=== PATIENT | male | born 1950 | race American Indian/Alaskan Native ===

== ENCOUNTER 2024-11-04 18:45 | Inpatient (IN) | payer MEDICARE, BC, SELFPAY ==
[2024-11-04] VITALS (18 sets, daily range): BP systolic 132–160; BP diastolic 70–86; PULSE 77–88; RESP 11–30; TEMP 36.7; O2SAT 83–98
--- OUTSIDE RECORDS SUMMARY | 2024-11-04 18:47 | XMS_ITS | Clinical Summary ---
Author Organization [facility] Address [address] [place] [address] Care Team Providers Care Bit Grinder Name Role Phone Unavailable Primary Care Provider Unavailabl e Source Comments Patient records contain information from all sites at [facility]. For routine questions regarding patient records, call [phone] during business hours, M-F 8:00 AM - 5:00 PM Central Time. Record requests for emergency care only can be directed to [phone] at any time.[facility] Allergies Active Allergy Reactions Criticality Noted Date Comments Lisinopril Cough 2017 Pneumococcal Vaccine Rash 11/13/2019 Medications * This document contains information received from the source organization and may not represent a complete record from that organization. apixaban (ELIQUIS) 5 mg tablet Take 5 mg by mouth 2 (two) times a day. Active atorvastatin (LIPITOR) 10 mg tablet Take 10 mg by mouth at bedtime. Active clopidogreL (PLAVIX) 75 mg tablet Take 75 mg by mouth daily. Active fluocinonide (LIDEX) 0.05 % cream Apply 1 application topically 2 (two) times a day. Active magnesium oxide (MAG-OX) 400 mg (241.3 mg magnesium) tablet Take by mouth every morning before breakfast. Active metoprolol tartrate (LOPRESSOR) 50 mg tablet Take 50 mg by mouth 2 (two) times a day. Active nitroglycerin (NITROSTAT) 0.[address] 0.4 mg under the tongue as needed for chest pain. Active pantoprazole (PROTONIX) 40 mg EC tablet Take 40 mg by mouth every morning before breakfast. Active sotaloL (BETAPACE) 80 mg tablet Take 80 mg by mouth every 12 (twelve) hours. 1/2 tab 2x/day Active triamcinolone (KENALOG) 0.1 % cream Apply 1 application topically 2 (two) times a day. Active albuterol inhaler Inhale every 4 (four) hours as needed for wheezing. Active Trelegy Ellipta 100-62.5-25 mcg inhaler INHALE 1 PUFF BY MOUTH 1 TIME DAILY Active furosemide (LASIX) 20 mg tablet Take 40 mg (2 tablets) once daily for 3 days then decrease to 20 mg (1 tablet) once daily. 3 Active losartan (COZAAR) 25 mg tablet Take 25 mg by mouth daily. 3 Active fluticasone propionate (FLONASE) 50 mcg/actuation nasal spray Administer 2 sprays into nostril(s). 3 Active carvediloL (COREG) 3.125 mg tablet Take 3.125 mg by mouth. 3 Active aspirin [address] tablet TAKE 1 TABLET BY MOUTH 1 TIME DAILY WITH A MEAL Active traZODone (DESYREL) 100 mg tablet Take 100 mg by mouth at bedtime. Active azelastine (ASTELIN) 137 mcg/spray (0.1 %) nasal spray Administer 2 sprays into nostril(s). 3 Active tamsulosin (Flomax) 0.4 mg 24 hr capsule Take 1 capsule (0.4 mg total) by mouth daily. 90 capsule 3 4 Active sildenafiL (Viagra) 100 mg tablet Take 1 tablet (100 mg total) by mouth daily as needed for erectile dysfunction. 90 tablet 3 4 Active fesoterodine (Toviaz) 4 mg 24 hr tablet Take 1 tablet (4 mg total) by mouth daily. 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 Sleep Obstructive 03/07/2014 Insomnia 02/28/2014 Coronary Stent Status Post 02/28/2014 Mass Parotid 02/07/2014 Hyperlipidemia 05/16/2012 Pain Shoulder Right 08/04/2006 Atherosclerotic Heart Diseas e Of [place] Coronary Artery Without Angina Pectoris 09/13/2005 Overview (04/18/2023): -Acute AL treated with lytics at [place] in 1996 -Acute Inferior wall AL 10/2003 -Stenting of RCA 10/16/2003 -Stenting of LAD, proximal OM1 10/18/2003 -LAD stenting 09/2005 -Angiogram 08/05/2006 Patent LAD, LCX and RCA stents -Adenosine Stress Myoview 08/06/2009 Area of moderate ischemia in the inferior wall EF 55% Encounters Date Type Department Care Team Description 10/25/2024 Clinical Communication Department of Ophthalmology in [place], [place] [address] [place] [address] Orlin Tucker M.D. 10/15/2024 Orders Only Department of Ophthalmology in [place], [place] [address] [place] [address] [facility] 09/03/2024 Orders Only Department of Urology in [place], [place] [address] [place] [address] Yudelka Lindsey APRN, C.N.P. 08/31/2024 Clinical Communication Department of Urology in [place], [place] [address] [place] [address] Yudelka Lindsey APRN, C.N.P. from Last 3 Months Immunizations Immunization Administration Dates Next Due Pneumococcal, Unspecified 07/04/2010 influenza vaccine quad (FLUZ ONE/FLUARIX) (6 months and older)(PF) 04/12/2014 Family History Medical History Relation Name Comments Cataracts Sister Relation Name Status Comments Sister Social History Tobacco Use Types Packs/Day Years Used Date Smoking Tobacco: Former Cigarettes Q uit: 11/01/2022 Passive Smoke Exposure: Never Smokeless Tobacco: Never Tobacco Cessation:Counseling Given: Not Answered Social Connection and Isolat ion Panel [NHANES] Answer Date Recorded In a typical week, how many times do you talk on the phone with family, friends, or neighbors? More than three times a week 11/12/2019 How often do you get togethe r with friends or relatives? More than three times a week 11/12/2019 How often do you attend chur ch or voodoo services? 1 to 4 times per year 11/12/2019 Do you belong to any clubs o r organizations such as yazdanism groups, unions, fraternal or athletic groups, or school groups? No 11/12/2019 How often do you attend meet ings of the clubs or organizations you belong to? Never 11/12/2019 Are you , , di vorced, , never , or living with a partner? 11/12/2019 AUDIT-C Answer Date Recorded Q1: How often do you have a drink containing alc ohol? 2-4 times a month 11/12/2019 Q2: How many drinks containi ng alcohol do you have on a typical day when you are drinking? 1 or 2 11/12/2019 Q3: How often do you have si x or more drinks on one occasion? Never 11/12/2019 Overall Financial Resource Strain (CARDIA) Answe r Date Recorded How hard is it for you to pa y for the very basics like food, housing, medical care, and heating? Not hard at all 05/23/2023 [facility] [place] [facility] Occupat ional Health - Occupational Stress Questionnaire Answer Date Recorded Do you feel stress - tense, restless, nervous, or anxious, or unable to sleep at night because your mind is troubled all the time - these days? Not at all 11/12/2019 Exercise Vital Sign Answer Date Recorde d On average, how many days pe r week do you engage in moderate to strenuous exercise (like a brisk walk)? 0 days Minutes of Exercise per Session Not on file 05/23/2023 Hunger Vital Sign Answer Date Recorded Within the past 12 months, y ou worried that your food would run out before you got the money to buy more. Never true 05/23/20 Within the past 12 months, t he food you bought just didn't last and you didn't have money to get more. Never true 05/23/2023 PRAPARE - Transportation Answer Date Re corded In the past 12 months, has l ack of transportation kept you from medical appointments or from getting medications? No 05/05 In the past 12 months, has l ack of transportation kept you from meetings, work, or from getting things needed for daily living? No 05/23/2023 Nutrition Answer Date Recorded On average, how many serving s of fruits and vegetables do you eat per day (serving size is equal to 1 cup or approximately the size of a tennis ball)? 0-2 05/23/2023 Dental Answer Date Recorded Dental: Regular Dentist Yes 05/23/20 Employment Answer Date Recorded Employment status Retired 05/23/2023 Housing Stability Answer Date Recorded What is your living situation today? I have a [facility] place to live 05/23/2023 Education Answer Date Recorded What is the highest level of school you have completed or the highest degree you have received? Some college, no degree 11/12/2019 Sex and Gender Information Value Date Recorded Sex Assigned at Male 05/23/2023 8:42 AM [employer] Legal Sex Male 5:52 PM [employer] Gender Identity Male 05/23/2023 8:42 AM [employer] Sexual Orientation Straight 05/23/2023 8: 42 AM [employer] Last Filed Vital Signs Vital Sign Reading Time Taken Comments Blood Pressure 112/62 01/13/2017 9:47 AM CDT Pulse 76 01/13/2017 9:47 AM CDT Temperature - - Respiratory Rate 18 01/13/2017 9:47 AM CDT Oxygen Saturation - - Inhaled Oxygen Concentration - - Weight 113 kg (249 lb 5.4 oz) 11/20/2020 8:09 AM CDT Height 169 cm (5' 6.54) 11/20/2020 8:09 AM CDT Body Mass Index 39.6 11/20/2020 8:09 AM CDT Plan of Treatment Health Maintenance Due Date Last Done Comments CT Colonography 1950 Cologuard 1950 FIT 1950 Hepatitis C Screening 1950 Office Visit for Blood Pressure Check / Re-check 1950 Zoster Vaccines (1 of 2) 2001 RSV vaccine - (32-36 weeks) or 60+ years (1 - Risk 60-74 years 1-dose series) 2011 DTaP,Tdap,and Td Vaccines (2 - Td or Tdap) 01/27/2021 01/27/2011 COVID-19 Vaccine (4 - season) 2024 06/06/2023, 04/15/2022, 05/15/2021 Influenza Vaccine (#1) 2024 , 04/15/2022, 03/19/2019, Additional history exists Depression Screening (Annual PHQ-2) 07/04/2024 Fall Risk Screen (Annual) 07/04/2024 Creatinine Level (Kidney Function Test) 03/20/2025 03/20/2024, 12/20/2023, 06/22/2023, Additional history exists Potassium Level 03/20/2025 03/20/2024, 12/02, 03/28/2023, Additional history exists Sodium Level 03/20/2025 03/20/2024, 12/02, 03/28/2023, Additional history exists Fasting Glucose for Diabetes Screening 03/20/2027 03/20/2024, 12/20/2023, 03/28/2023, Additional history exists Lipid (Cholesterol) Screening 12/19/2028 12/20/2023, 11/09/2022, 12/03/2020, Additional history exists Colonoscopy 03/11/2030 03/11/2020, 04/08/2006 Colorectal Cancer Screening 03/11/2030 Abdominal Aortic Aneurysm (AAA) Screen Completed 12/12/2017, 12/12/2017, 03/31/2014, Additional history exists Pneumococcal vaccine (50+ years) Completed 05/08/2018, 04/21/2016, 07/04/2010, Additional history exists IPV Vaccines Aged Out No longer eligi ble based on patient's age to complete this topic Medical Devices Implanted Type Area Application Integrator Device Identifier Shelf Expiration Date Model / Serial / Lot Jose Stent 4.0 X 20 - Acuna [id number] Implanted:Qty: 1 on 03/21/2014 Cardiac Stent [employer] Description:Device Manufactu rer - [employer]. Device Status Text - [id number]. Gelsoft-Str 8mm X 30cm - [id number] Implanted:Qty: 1 on 03/21/2014 Vascular Graft Other/Legacy - See Implant Description [employer] Description:Device Manufactu rer - [employer] Cardi[employer] Sys. Body Location - Other. Not Applicable. Device Status Text - [id number]. Procedures Procedure Name Priority Date/Time Associated Diagnosis Comments ELECTROLYTE (CHEM 4) PANEL, S/P Routine 04/23/2014 4:[address] ABDOMEN PELVIS WITHOUT IV CONTRAST Routine 03/31/2014 9:21 AM CDT from Last 3 Months or Most Recently Relevant to Health Maintenance Results * (ABNORMAL) Electrolyte (Chem 4) Panel (04/23/2014 4:46 AM CDT) Sodium, S 139 135 - 145 MMOL/L [facility] Potassium, S 4.9 3.6 - 5.2 MMOL/L [facility] eGFR-Black/Afri can [place] >60 >60 ML/MIN/BSA [facility] BUN (Blood Urea Nitrogen), S 13 8 - 24 MG/DL [facility] Chloride, S 102 98 - 107 MMOL/L [facility] HX Bicarbonate, P/S 30(H) 22 - 29 MMOL/L [facility] Creatinine 1.2 0.8 - 1.3 MG/DL [facility] eGFR Non-Black/Afric an [place] >60 >60 ML/MIN/BSA [facility] Anion Gap 7 7 - 15 [facility] Glucose, S 93 70 - 140 MG/DL [facility] 04/23/2014 4:46 AM CDT 04/23/2014 4:46 AM CDT us Angela Kramer APRN C.NKeiryPKeiry, M.S.N., RDivina SQUIRES BLOOD ADD-ON Final Result Performing Organization Address City/State/[facility] Co de Phone Number [facility] [address] [place] [address], [facility] * CT Abdomen Pelvis without IV Contrast (03/31/2014 9:21 AM CDT) Anatomical Region Laterality Modality Abdomen, Pelvis N/A Computed Tomogra phy 03/31/2014 9:21 AM CDT Impressions 03/31/2014 11:55 AM CDT 1. Decreased hemoperitoneum. 2. Tubular opacity in the right common femoral and external iliac veins may represent a retained catheter fragment. 3. Remainder unchanged since 03/22/2014. FINDINGS: Decreased hemoperitoneum. The bilateral femoral central venous catheters/ECMO have been removed. Persistent linear object in the right external iliac and femoral veins, concerning for a retained catheter fragment (present previously). Bilateral groin drains. Small amount of residual blood products in the right groin. Cholecystectomy. Decreased perinephric stranding. Urinary catheter. NG tube. Normal caliber small bowel and colon. No definite lymphadenopathy in the abdomen or pelvis. Small residual bilateral pleural effusions with associated compressive atelectasis in the lung bases. Right anterior 5th and bilateral anterior 6th rib fractures. Vague isolated sclerosis in the posterior aspect of the left ilium, seen on series 2 images 66-71, of uncertain significance. Coronary stents. Electronically signed by: Jayden Jose MD [phone] 31-Mar-2014 11:55 Atif Balderrama M.D. [phone] 31-Mar-2014 11:55 Narrative 03/31/2014 11:55 AM CDT 31-Mar-2014 09:21:00 Exam: CT ABDOMEN wo & PELVIS wo Indications: s/p arrest/cpr/va ecmo -eval for any thrombotic/bleed event -s/p parotidectomy; neck hematoma eval for abscess; right neck incision ORIGINAL REPORT - 31-Mar-2014 11:55:00 EXAM: CT scan of the Abdomen and Pelvis without IV contrast COMPARISON: CT chest abdomen pelvis without IV contrast dated 03/22/2014. Procedure Note Erick Balderrama M.D. - 09/30/2017 31-Mar-2014 09:21:00 Exam: CT ABDOMEN wo & PELVIS wo Indications: s/p arrest/cpr/va ecmo -eval for any thrombotic/bleed event-s/p parotidectomy; neck hematoma eval for abscess; right neck incision ORIGINAL REPORT - 31-Mar-2014 11:55:00 EXAM: CT scan of the Abdomen and Pelvis without IV contrast COMPARISON: CT chest abdomen pelvis without IV contrast dated 03/22/2014. IMPRESSION: 1. Decreased hemoperitoneum. 2. Tubular opacity in the right common femoral and external iliac veinsmay represent a retained catheter fragment. 3. Remainder unchanged since 03/22/2014. FINDINGS: Decreased hemoperitoneum. The bilateral femoral central venouscatheters/ECMO have been removed. Persistent linear object in the rightexternal iliac and femoral veins, concerning for a retained catheterfragment (present previously). Bilateral groin drains. Small amount ofresidual blood products in the right groin. Cholecystectomy. Decreased perinephric stranding. Urinary catheter. NGtube. Normal caliber small bowel and colon. No definite lymphadenopathy inthe abdomen or pelvis. Small residual bilateral pleural effusions withassociated compressive atelectasis in the lung bases. Right anterior 5thand bilateral anterior 6th rib fractures. Vague isolated sclerosis in theposterior aspect of the left ilium, seen on series 2 images 66-71, ofuncertain significance. Coronary stents. Electronically signed by: Jayden Jose MD [phone] 31-Mar-2014 11:55 Atif Balderrama M.D. [id number] 11:55 Edu Vizcarra M.D. IMRaffy CT PROCEDURES Final Res ult from Last 3 Months or Most Recently Relevant to Health Maintenance Insurance [facility] MEDICARE
--- OUTSIDE RECORDS SUMMARY | 2024-11-04 18:47 | XMS_ITS | Clinical Summary ---
Author Organization [employer] [facility] [employer] [facility] Address [address] [place] [address] Care Team Providers Care Monorail Helper Name Role Phone Licha Henderson MD Primary Care Provider [phone] Lambert Cullen MD Unavailable [phone] Allergies Active Allergy Reactions Criticality Noted Date Comments Lisinopril Cough 2017 Pneumococcal 23-Maame Ps Vaccine Edema,Erythema 1 07/10/2017 Medications nitroglycerin (NITROSTAT) 0.4 mg sublingual tabletIndications:Chest pain in adult Place 1 tablet under the tongue every 5 minutes if needed for Chest Pain. 25 tablet 5 07/20/19 20 Active fluocinonide 0.05 TOPICAL (LIDEX) 0.05 % external solutionIndications:Jagdeep matitis of ear canal, left Apply topically to affected area(s) 2 times daily. 60 mL 1 07/21/19 21 Active oxybutynin XL (DITROPAN XL) 5 mg CR tablet Take 5 mg by mouth once daily. 05/23/20 23 Active aspirin (ECOTRIN) 81 mg enteric coated tabletIndications:Parox ysmal atrial fibrillation (HC) Take 1 Tablet (81 mg) by mouth once daily with a meal. 90 Tablet 3 06/17/20 23 Active fluticasone (50 mcg per actuation) nasal solution (FLONASE)Indications:Po stnasal drip Inhale 2 Sprays to both nostrils once daily. 48 g 3 11/12/19 24 Active triamcinolone (ARISTOCORT; KENALOG) 0.1 % creamIndications:Dermat itis Apply topically to affected area(s) two times daily. 80 g 5 11/30/19 24 Active tamsulosin (FLOMAX) 0.4 mg capsuleIndications:Shyam gn prostatic hyperplasia with urinary frequency Take 1 Capsule (0.4 mg) by mouth once daily after a meal. 90 Capsule 2 03/01/20 24 Active atorvastatin (LIPITOR) 10 mg tabletIndications:Pure hypercholesterolemia Take 1 Tablet (10 mg) by mouth at bedtime. 90 Tablet 2 03/01/20 24 Active doxycycline hyclate 100 mg capsule TAKE 1 CAPSULE BY MOUTH TWICE DAILY BEFORE MORNING AND EVENING MEALS FOR 21 DAYS 05/14/20 24 Active apixaban (Eliquis) 5 mg tabletIndications:Atria l fibrillation by electrocardiogram (HC) Take 1 Tablet (5 mg) by mouth two times daily. 180 Tablet 1 05/29/20 24 Active carvediloL (COREG) 6.25 mg tabletIndications:Hyper tension Take 1 Tablet (6.25 mg) by mouth two times daily with meals. 180 Tablet 3 05/29/20 24 Active furosemide (LASIX) 20 mg tabletIndications:Parox ysmal atrial fibrillation (HC),CASAREZ (dyspnea on exertion) Take 1 Tablet (20 mg) by mouth once daily. 90 Tablet 3 05/29/20 24 Active losartan (COZAAR) 25 mg tabletIndications:Parox ysmal atrial fibrillation (HC) Take 1 Tablet (25 mg) by mouth once daily. 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 90 Tablet 2 09/13/19 25 Active metoprolol tartrate (LOPRESSOR) 50 mg tabletIndications:Parox ysmal atrial fibrillation (HC),Chest pain, unspecified type,Coronary artery disease involving nulato coronary artery of nulato heart with unstable angina pectoris (HC),PVC (premature ventricular contraction) Take 1 Tablet (50 mg) by mouth two times daily. 180 Tablet 2 09/13/19 25 Active metoprolol tartrate 50 mg tabletIndications:Parox ysmal atrial fibrillation (HC),Chest pain, unspecified type,Coronary artery disease involving nulato coronary artery of nulato heart with unstable angina pectoris (HC),PVC (premature ventricular contraction) TAKE ONE (1) TABLET BY MOUTH TWICE DAILY 180 Tablet 09/19/19 25 Active sotaloL 80 mg tabletIndications:Persi stent atrial fibrillation (HC) TAKE 1/2 TABLET (40 MG) BY MOUTH EVERY 12 HOURS 90 Tablet 09/19/19 25 Active Active Problems Patient Care Coordination No te Formatting of this note migh t be different from the original. HF/Structural/Prevention Research Eligibility Review Date: 08/27/19 Upcoming Visit Location: [facility] Age: 69 y.o. 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 08/25/2019 Chronic obstructive pulmonary disease 05/08/2018 Paroxysmal atrial fibrillation 08/26/2017 Overview (08/26/2017): S/P atrial fibrillation ablation 08/26/2017 History of cardiac arrest 03/29/2017 KRISTI (obstructive sleep apnea) 03/29/2017 History of Mars's esophagus 03/29/2017 Benign prostatic hyperplasia with lower urinary tract symptoms 03/29/2017 Right inguinal pain 03/29/2017 Typical atrial flutter 06/08/2016 Gastroesophageal reflux disease without esophagi tis 06/18/2015 Lymphedema 08/02/2014 Occlusion of coronary artery, acute 03/21/2014 Overview (04/25/2014): right coronary artery, s/p thrombectomy and bare metal stent placement at [facility] Personal history of colonic polyps 06/14/2012 Hyperlipidemia 05/16/2012 BPH (benign prostatic hypertrophy) 11/09/2009 Erectile Dysfunction 11/01/2006 CHRONIC BILATERAL SHOULDER PAIN 08/04/2006 ASCVD (arteriosclerotic cardiovascular disease) 09/13/2005 Overview (12/26/2013): -Acute CT treated with lytics at [facility] in 1996 -Acute Inferior wall CT 10/2003 -Stenting of RCA 10/16/2003 -Stenting of LAD, proximal OM1 10/18/2003 -LAD stenting 09/2005 -Angiogram 08/05/2006 Patent LAD, LCX and RCA stents -Adenosine Stress Myoview 08/06/2009 Area of moderate ischemia in the inferior wall EF 55% Hypertension Resolved Problems Problem Noted Date Diagnosed Date Resolved Date Class 3 severe obesity with serious comorbidity and body mass index (BMI) of 40.0 to 44.9 in adult 06/07/2023 11/02/2023 After-cataract of left eye w ith vision obscured 11/25/2020 04/14/2021 Combined forms of age-relate d cataract of left eye 12/18/2019 04/14/2021 Other cardiomyopathies 12/30/201811/15 Coronary artery disease invo lving nulato coronary artery of nulato heart 10/31/2018 11/10/19 Chest pain 03/29/2017 05/08/2018 GERD (gastroesophageal reflux disease) 03/29/2017 11/09/2022 Unstable angina 03/29/2017 05/08/2018 LV dysfunction 03/29/2017 05/08/2018 Anticoagulation monitoring, INR range 2-3 06/04/2016 07/02/2016 Dyspnea 05/28/2016 12/29/2018 CASAREZ (dyspnea on exertion) 05/28/2016 Lymphedema of left leg 08/02/201408/02 Non-ST elevation myocardial infarction (NSTEMI), initial care episode 01/29/2010 4 Insomnia 11/09/2009 03/29/2017 Dizziness and giddiness 08/08/200912/02 Chest discomfort 08/07/2009 12/26/2013 Adjustment disorder with depressed mood 12/24/2008 08/02/2014 Pure hypercholesterolemia 09/13/2005 Overview (08/07/2009): -On Zetia -Intolerant to Lipitor and Zocor, elevated LFTs Unspecified essential hypertension 09/13/2005 05/16/2012 Overview (08/07/2009): -On Altace -Intolerant to BB Tobacco use disorder 09/13/2005 007 Overview (09/13/2005): 1/2 ppd Cardiac arrest 12/29/2018 Overview (04/25/2014): in hospital, V-fib arrest requiring VA ECMO support and therapeutic hyppthermia Acute internal jugular vein thrombosis 08/29/2018 Overview (04/25/2014): left Polyp of colon 11/09/2022 Encounters Date Type Department Care Team Description 10/24/[address] [phone] Licha Henderson MD ACC Order Request (LYMPHEDEMA) 10/10/[address] [phone] Licha Henderson MD Message (Blood thinner inquiry) 09/13/2024 Refill [facility] [address] [place] [address] Jayden Monroe MD Refill Request 09/12/2024 Telephone [facility] [address] [place] [address] Jayden Monroe MD Refill Request (Metoprolol & Carvedilol) 09/12/2024 Refill [facility] [address] [place] [address] Licha Henderson MD Refill Request (Metoprolol Tartrate, Sotalol) 09/11/2024 Refill [facility] [address] [place] [address] Jayden Monroe MD Refill Request (Sotalol & metoprolol tartrate) 09/11/2024 Refill [facility] [address] [place] [address] Licha Henderson MD Refill Request (Trelegy Ellipta, Trazodone) 08/28/2024 Telephone [facility] [address] [place] [address] Dede Melendrez MD Cardiology Appointment from Last 3 Months Immunizations Immunization Administration Dates Next Due COVID-19 VACCINE SPIKEVAX (M ODERNA 50MCG/0.5ML) 12YO+ PFS 06/06/2023 Influenza, High-dose Inactivated 04/21/2016 Influenza, High-dose Quadriv alent Inactivated 04/15/2022 Influenza, IIV3 (Age 6-35 mos) 04/21/2011 Influenza, IIV3 (Age >=3 years) 05/16/2012,04/21,05/13/2008 Influenza, IIV4 05/14/2014,04/12/2014 Influenza, Inactivated AIIV4 (Age 65+ Years) Preserv Free 06/06/2023 Influenza, Inactivated IIV3 (Age 65+ Years) Preserv Free 03/19/2019,05/08/2018,03/31/2017 Pneumococcal Poly,23-Valent (Pneumovax) 05/08/20 18,02/08/2006 Pneumococcal conj 13-Valent (Prevnar 13) 016 Pneumococcal, Unspecified 07/04/2010 Td (Age >=7 Years) 01/08/1997 Tdap 01/27/2011 Family History Medical History Relation Name Comments Hypertension Brother 1 Stroke Brother 2 Diabetes Brother 3 Other Brother 4 age 7, all ergic reaction? Psychiatric illness Daughter Unique Grider on Heart Disease Father CT age 71 Heart attack Father Hypertension Father Heart attack Mother Other Mother age 69- ki dney and liver failure. Possible alcoholism Cancer-breast Sister 1 Eli Cancer-breast Sister 2 Stephanie Relation Name Status Comments Brother 1 Brother 2 Brother 3 Brother 4 Daughter Unique Father Maternal Uncle colon cancer Other Mother Sister 1 Eli Alive Sister 2 Stephanie Alive Sister 3 Vivian Alive Sister 4 Patricia Alive Sister 5 Daphne Alive Sister 6 Alive Sister 7 Alive Social History Tobacco Use Types Packs/Day Years Used Date Smoking Tobacco: Former Cigarettes 0.5 3.4 0 07/04/2019 - 11/09/2022 Cigars Smokeless Tobacco: Former Tobacco Cessation:Counseling Given: Not Answered Comments:quit cigarettes 02/06 with 40-45 pack year hx Alcohol Use Standard Drinks/Week Comments Yes 0 (1 standard drink = 0.6 oz pur e alcohol) 3-6 per week PHQ-2 Answer Date Recorded PHQ-2 TOTAL SCORE 0 04/02/2024 Social Connections Answer Date Recorded Do you often feel lonely or isolated from those around you? 0 03/28/2024 Financial Resource Strain Answer Date R ecorded Difficulty of Paying Living Expenses 3 03/28/2024 Difficulty of Paying Living Expenses Not on file 03/28/2024 Food Insecurity Answer Date Recorded Do you worry your food will run out before you are able to buy more? 1 03/28/2024 Transportation Needs Answer Date Record ed Does lack of transportation keep you from medica l appointments? 1 03/28/2024 Does lack of transportation keep you from work, meetings or getting things that you need? 1 03/28/2024 Housing Stability Answer Date Recorded What is your housing situation today? 1 03/28/2024 Interpersonal Safety Answer Date Record ed Are you being hit, kicked, p ushed or yelled at (see row info)? No 03/20/2024 Interpersonal Safety Abuse 12 - 18 Not on file 03/20/2024 Interpersonal Safety Ambulatory Vulnerability No t on file 03/20/2024 Utilities Answer Date Recorded Do you have trouble paying f or utilities (for example, heat, electricity, water, phone)? 1 03/28/2024 Sex and Gender Information Value Date Recorded Sex Assigned at Not on file Legal Sex Male 5:23 AM BOILER WELDER Gender Identity Not on file Sexual Orientation Not on file Occupation Industry Job Start Date Job End Date Not on file Not on file Not on file Not on file Obstetrics History Last Filed Vital Signs Vital Sign Reading Time Taken Comments Blood Pressure 148/88 05/29/2024 11:18 AM BOILER WELDER Pulse 68 05/29/2024 11:18 AM BOILER WELDER Temperature 36.6 C (97.9 F) 03/20/2024 8:46 AM CDT Respiratory Rate 16 03/20/2024 8:46 AM CDT Oxygen Saturation 96% 05/29/2024 11:18 AM BOILER WELDER Inhaled Oxygen Concentration - - Weight 120.7 kg (266 lb) 05/29/2024 11:18 AM BOILER WELDER Height 170.2 cm (5' 7) 05/29/2024 11:18 AM BOILER WELDER Body Mass Index 41.66 05/29/2024 11:18 AM BOILER WELDER Plan of Treatment Upcoming Encounters Date Type Department Care Team (Late st Contact Info) Description 11/06/2024 2:15 PM CDT Appointment [address] [address] Yasmin Guerra, OT [address] [place] [address] 11/07/2024 3:00 PM CDT Office Visit [address] [phone] Licha Henderson MD [address] [place] [address] 11/09/2024 12:15 PM CDT Appointment [address] [address] Yasmin Guerra, OT [address] [address] 11/13/2024 2:30 PM CDT Appointment [address] [place] [address] Yasmin Guerra, OT [address] [address] 11/15/2024 3:15 PM CDT Appointment [address] [place] [address] Yasmin Guerra, OT [address] [address] 11/20/2024 3:15 PM CDT Appointment [address] [address] Yasmin Guerra, OT [address] [address] 11/22/2024 3:15 PM CDT Appointment [address] [address] Yasmin Guerra, OT [address] [facility] [place] [address] 11/27/2024 2:30 PM CDT Appointment [address] [address] Yasmin Guerra, OT [address] [address] 11/29/2024 2:30 PM CDT Appointment [address] [address] Yasmin Guerra, OT [address], [place] [address] 12/11/2024 3:15 PM CDT Appointment [address] [address] Yasmin Guerra, OT [address] [place] [address] 12/14/2024 3:15 PM CDT Appointment [address] [address] Yasmin Guerra, OT [address] [place] [address] 12/18/2024 10:30 AM CDT [facility] [address] [place] [address] Orlin Jimenez MD [address] [facility] [address] [place] [address] 12/19/2024 3:15 PM CDT Appointment [address] [address] Yasmin Guerra, OT [address], [place] [address] 12/21/2024 3:15 PM CDT Appointment [address] [address] Yasmin Guerra, OT [address] [place] [address] Health Maintenance Due Date Last Done Comments Zoster (shingles) series for age 50+ (1 of 2) 2001 RSV vaccine for adults or (1 - Risk 60-74 years 1-dose series) 2011 Tetanus booster 01/27/2021 01/27/2011, 01/08/1997 Colonoscopy through age 75 03/11/202303/11, 06/06/2012, 06/06/2012, Additional history exists Medicare Wellness for age 65+ 11/10/2023, 03/03/2020, 05/08/2018 COVID-19 vaccine series ( season) 2024 06/06/2023, 04/15/2022, 05/15/2021 Influenza Vaccine (Season Ended) 2025 06/06/2023, 03/19/2019, 05/08/2018, Additional history exists Depression screening for age 12+ 04/02/2025 04/02/2024, 11/09/2022, 04/16/2021, Additional history exists BMI (ht and wt on same day) for age 18+ 05/29/2025 05/29/2024, 12/23/2023, 06/06/2023, Additional history exists Lipids for age 45-75 12/19/2028 12/20/2023, 11/09/2022, 12/03/2020, Additional history exists Tdap Completed 01/27/2011 AAA screening age 65-74 Completed 12/13/19 18, 11/11/2014, 10/31/2014 Pneumococcal series for age 50+ Completed 05/08/2018, 04/21/2016, 07/04/2010, Additional history exists Hepatitis C screening for ag e 18-79 Completed 08/24/2019 Medical Devices Implanted Type Area Operator Device Identifier Shelf Expiration Date Model / Serial / Lot Iol Mower +21 [employer] [id number] - [id number] Implanted:Qty: 1 on 12/19/2019 by Oren Cameron Jr., MD at [facility] Left: Eye [employer] 03/09/2023 [id number] 21.0# / [id number] / Procedures Procedure Name Priority Date/Time Associated Diagnosis Comments LIPID PANEL Routine 12/20/2023 7:34 AM CDT Dyslipidemia COLONOSCOPY 03/11/2020 8:04 AM CDT ANTI HCV Routine 08/24/2019 11:30 AM BOILER WELDER Need for hepatitis C screening test CT ABDOMEN PELVIS W Routine 12/12/2017 2 :04 PM CDT Abdominal pain, RUQ (right upper quadrant) Abdominal pain, LUQ (left upper quadrant) from Last 3 Months or Most Recently Relevant to Health Maintenance Results * (ABNORMAL) LIPID PANEL (12/20/2023 7:34 AM CDT) Pathologist [facility] CHOLESTEROL,TOTAL 193 100 - 199 mg/dL 12/20/2023 8:19 AM [facility] Comment: Cholesterol, Total Reference Ranges Desirable <200 mg/dL Borderline 200-239 mg/dL High >=240 mg/dL TRIGLYCERIDES 191(H) <150 mg/dL 12/20/2023 8:19 AM [facility] HDL CHOLESTEROL 50 >40 mg/dL 8:19 AM [facility] NON-HDL CHOLESTEROL 143 <145 mg/dl 12/20/2023 8:19 AM [facility] CHOL/HDL RATIO 3.86 <4.50 12/20/2023 8:19 AM [facility] LDL CHOLESTEROL 105 <=130 mg/dL 12/20/2023 8:19 AM [facility] VLDL CHOLESTEROL 38(H) <=30 mg/dL 12/20/2023 8:19 AM [facility] PROVIDER ORDERED STATUS RANDOM 12/20/2023 8:19 AM [facility] Blood BLOOD SPECIMEN / Unknown Venipuncture / Unknown 12/20/2023 7:34 AM CDT 12/20/2023 7:36 AM CDT [facility] Titus Melendrez MD CHEMISTRY Final Result [facility] [address] [place] [phone] * COLONOSCOPY (03/11/2020 8:04 AM CDT) 03/11/2020 8:04 AM CDT Narrative Transcriptions Fiona Shelton, - 04/06/2020 9:59 AM CDT Patient Name: Dorian Spencer Procedure Date: 03/11/2020 Gender: Male Date of : 1950 Admit Type: Ambulatory Procedure: Colonoscopy Proceduralist: Fiona Shelton MD [facility] Indications/Pre-Op Diagnosis: High risk colon cancer surveillance:Personal history of colonic polyps, Last colonoscopy5 years ago Medications: Propofol per Anesthesia Procedure Description: The patient had risks, benefits and alternatives explained to andgave informed consent. The patient had a stable cardiopulmonary status and judged an adequate candidate for conscious sedation. The colonoscope was passed through the anus and advanced to thececum, identified by appendiceal orifice and ileocecal valve. Thecolonoscopy was performed without difficulty. The patient tolerated the procedure well. The quality of the bowel preparation was good. The ileocecal valve, appendiceal orifice, and rectum were photographed. Complications: No immediate complications. Estimated Blood Loss & Specimen: Estimated blood loss: none. Specimen collected - Yes and sent to Laboratory Findings: A 5 mm polyp was found in the ascending colon. The polyp was sessile. The polyp was removed with a hot snare. Resection and retrieval were complete. Verification of patient identification for the specimen was done. Estimated blood loss was minimal. A 3 mm polyp was found in the transverse colon. The polyp wassessile. The polyp was removed with a hot snare. Resection and retrieval were complete. Verification of patient identification for the specimen was done. Estimated blood loss was minimal. A 4 mm polyp was found in the sigmoid colon. The polyp was sessile.The polyp was removed with a hot snare. Resection and retrieval were complete. Verification of patient identification for the specimen was done. Estimated blood loss was minimal. Three sessile polyps were found in the rectum. The polyps were 3 to 4mm in size. These polyps were removed with a hot snare. Resection and retrieval were complete. Verification of patient identification forthe specimen was done. Estimated blood loss was minimal. Internal hemorrhoids were found during retroflexion. The hemorrhoids were Grade II (internal hemorrhoids that prolapse but reduce spontaneously). Impressions/Post-Op Diagnosis: - One 5 mm polyp in the ascending colon, removed with a hot snare. Resected and retrieved. - One 3 mm polyp in the transverse colon, removed with a hot snare. Resected and retrieved. - One 4 mm polyp in the sigmoid colon, removed with a hot snare. Resected and retrieved. - Three 3 to 4 mm polyps in the rectum, removed with a hot snare. Resected and retrieved. - Internal hemorrhoids. Recommendation: - Discharge patient to home. - Patient has a contact number available for emergencies. The signsand symptoms of potential delayed complications were discussed with the patient. Return to normal activities tomorrow. Written discharge instructions were provided to the patient. - Resume previous diet. - Continue present medications. - Await pathology results. - Repeat colonoscopy in 3 - 5 years for surveillance. Fiona Shelton MD 04/06/2020 9:59:36 AM This report has been signed electronically. Note Initiated On: 03/11/2020 8:04 AM us Fiona Shelton DO PROCEDURE ORD Fi nal Result * ANTI HCV (08/24/2019 11:30 AM BOILER WELDER) HEPATITIS C ANTIBODY Non-React melisa Non-React melisa 08/24/2019 10:06 PM BOILER WELDER [facility] Comment:Antibodies to HCV no t detected; does not exclude the possibility of exposure to HCV. Blood BLOOD SPECIMEN / Unknown Venipuncture / Unknown 08/24/2019 11:30 AM BOILER WELDER 08/24/2019 11:32 AM BOILER WELDER us Licha Henderson MD SEND OUTS Final Res ult [facility] [address] [place] [address], [place] * CT ABDOMEN PELVIS W (12/12/2017 2:04 PM CDT) Anatomical Region Laterality Modality Abdomen, Pelvis, AORTA, LIVER, SPLEEN Computed Tomography 12/12/2017 3:06 PM CDT Narrative 12/12/2017 3:06 PM CDT INDICATION: Bilateral upper quadrant abdominal pain TECHNIQUE: CT abdomen and pelvis acquired with 100 cc Isovue-300 IV and oral contrast. COMPARISON: 11/11/2014 FINDINGS: Lower chest: Unremarkable. Liver: Normal in caliber and attenuation. No masses. Gallbladder and bile ducts: Status post cholecystectomy. Pancreas: Unremarkable. Spleen: Normal in caliber. No masses. Adrenal glands: Unremarkable. No masses. Kidneys: Normal in caliber. No masses. GI tract: Normal in caliber and appearance. No sign of mass or inflammation. Normal appendix. Vasculature: Unremarkable. Lymph nodes: No lymphadenopathy. Abdominal wall/Omentum/Peritoneum: Unremarkable. No free air or significant free fluid. Pelvic organs: Suspected TURP defect in the prostate gland. Otherwise unremarkable. Bones: No suspicious bone lesions. IMPRESSION: No acute or specific finding to explain upper abdominal pain. No significant change from the prior exam. Please note that all CT scans at this facility use dose modulation, iterative reconstruction, and/or weight-based dosing when appropriate to reduce radiation dose to as low as reasonably achievable. Dictated by Jacobo Robins MD @ Dec 12 2017 2:53PM Signed by Dr. Jacobo Robins @ Dec 12 2017 3:06PM Procedure Note Jacobo Robins MD - 12/12/2017 INDICATION: Bilateral upper quadrant abdominal pain TECHNIQUE: CT abdomen and pelvis acquired with 100 cc Isovue-300 IV and oralcontrast. COMPARISON: 11/11/2014 FINDINGS: Lower chest: Unremarkable. Liver: Normal in caliber and attenuation. No masses. Gallbladder and bile ducts: Status post cholecystectomy. Pancreas: Unremarkable. Spleen: Normal in caliber. No masses. Adrenal glands: Unremarkable. No masses. Kidneys: Normal in caliber. No masses. GI tract: Normal in caliber and appearance. No sign of mass orinflammation. Normal appendix. Vasculature: Unremarkable. Lymph nodes: No lymphadenopathy. Abdominal wall/Omentum/Peritoneum: Unremarkable. No free air orsignificant free fluid. Pelvic organs: Suspected TURP defect in the prostate gland. Otherwiseunremarkable. Bones: No suspicious bone lesions. IMPRESSION: No acute or specific finding to explain upper abdominal pain. Nosignificant change from the prior exam. Please note that all CT scans at this facility use dose modulation,iterative reconstruction, and/or weight-based dosing when appropriate toreduce radiation dose to as low as reasonably achievable. Dictated by Jacobo Robins MD @ Dec 12 2017 2:53PM Signed by Dr. Jacobo Robins @ Dec 12 2017 3:06PM Licha Henderson MD CT Final Res ult from Last 3 Months or Most Recently Relevant to Health Maintenance Insurance MEDICARE PART B HB ONLY MEDICARE PART A HB ONLY [place] PB ONLY [place] HB ONLY MEDICARE PART B HB ONLY [facility] Advance Directives * Full Code (Latest Code Status on File) Date Activated Date Inactivated Comments 11/24/2022 10:39 AM 11/24/2022 3:41 PM Question Answer Comments Code Status Discussion: Discussed * Full Code Date Activated Date Inactivated Comments 03/11/2020 7:08 AM 03/11/2020 12:31 PM Question Answer Comments Code Status Discussion: Discussed * Full Code Date Activated Date Inactivated Comments 12/19/2019 7:12 AM 12/19/2019 1:43 PM Question Answer Comments Code Status Discussion: Not Discussed * Full Code Date Activated Date Inactivated Comments 11/08/2018 9:39 AM 11/10/2018 1:07 PM * Full Code Date Activated Date Inactivated Comments 12/16/2017 10:43 AM 12/16/2017 5:56 PM Care Teams Monorail Helper Relationship Specialty Start Date End Date Licha Henderson MD [address] [facility] [place] [address] PCP - General Internal Medicine 12/10/13 Lambert Cullen MD [address] [place] [address] Cardiovascular Disease 03/28/17
--- OUTSIDE RECORDS SUMMARY | 2024-11-04 18:47 | XMS_ITS | Encounter Summary ---
Author Organization 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, Provider, Cataract Social History Tobacco Use Types Packs/Day Years Used Date Smoking Tobacco: Former Cigarettes Q uit: 11/01/2022 Passive Smoke Exposure: Never Smokeless Tobacco: Never Social Connection and Isolat ion Panel [NHANES] Answer Date Recorded In a typical week, how many times do you talk on the phone with family, friends, or neighbors? More than three times a week 11/12/2019 How often do you get togethe r with friends or relatives? More than three times a week 11/12/2019 How often do you attend chur ch or methodist services? 1 to 4 times per year 11/12/2019 Do you belong to any clubs o r organizations such as religious groups, unions, fraternal or athletic groups, or [...] and heating? Not hard at all 05/23/2023 [facility] of Occupat ional Health - Occupational Stress [...] your living situation today? I have a [facility] place to live 05/23/2023 Education Answer Date Recorded What is the highest level of school you have completed or the highest degree you have received? Some college, no degree 11/12/2019 Sex and Gender Information Value Date Recorded Sex Assigned at Male 05/23/2023 8:42 AM UTILIZATION REVIEW RN Legal Sex Male 5:52 PM UTILIZATION REVIEW RN Gender Identity Male 05/23/2023 8:42 AM UTILIZATION REVIEW RN Sexual Orientation Straight 05/23/2023 8: 42 AM UTILIZATION REVIEW RN documented as of this encounter Plan of Treatment Not on file documented as of this encounter Visit Diagnoses Diagnosis Cataract documented in this encounter Additional Health Concerns Assessment Noted Time PHQ-9 Depression Total Score: 3 02/14/20 15 8:52 AM CDT documented as of this encounter
--- OUTSIDE RECORDS SUMMARY | 2024-11-04 18:47 | XMS_ITS | Encounter Summary ---
Author Organization [facility] Address [address] [place] [address] Care Team Providers Care Critical Care Technician Name Role Phone Unavailable Primary Care Provider Unavailabl e Encounter Details Date Type Department Care Team (Latest Contact Info) Description 10/25/2024 Clinical Communication Department of Ophthalmology in [place], [place] [address] [place] [address] Orlin Tucker M.D. [address] [place] [address] Social History Tobacco Use Types Packs/Day Years [...] often do you attend chur ch or cheondoism services? 1 to 4 times per year 11/12/2019 Do you belong to any clubs o r organizations such as presybeterian groups, unions, fraternal or athletic groups, or [...] and heating? Not hard at all 05/23/2023 [facility] of Occupat ional Health - Occupational Stress [...] money to buy more. Never true 05/23/20 23 Within the past 12 months, t he [...] your living situation today? [facility] 05/23/2023 Education Answer Date Recorded What is the highest level of school you have completed or the highest degree you have received? Some college, no degree 11/12/2019 Sex and Gender Information Value Date Recorded Sex Assigned at Male 05/23/2023 8:42 AM [employer] Legal Sex Male 5:52 PM [employer] Gender Identity Male 05/23/2023 8:42 AM [employer] Sexual Orientation Straight 05/23/2023 8: 42 AM [employer] documented as of this encounter Plan of Treatment Scheduled Orders Name Type Priority Associated Diagnoses Orde r Schedule Ocular Coherence Biometry (OCB) - OU - Both Eyes Ophthalmology Routine Age Related Nuclear Cataract Right Eye 1 Occurrences starting 10/26/2024 until 01/25/2026 documented as of this encounter Visit Diagnoses Diagnosis 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
--- NOTE | 2024-11-04 19:06 | ED.GENADULT ---
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 Med list available in his records from [facility] through [facility] link includes Albuterol Trouble eg Ellipta Fluticasone nasal spray Apixaban Aspirin 81 mg Carvedilol 6.125 b.i.d. Furosemide 20 mg daily-prescribed for dyspnea on exertion from AFib per medical record Losartan 25 mg Metoprolol tartrate 50 mg Sotalol 40 mg b.i.d. Nitroglycerin sublingually p.r.n. Oxybutynin Sildenafil tamsulosin Trazodone History is obtained mostly from the patient but is supplemented by his family. He has an extensive cardiac history including previous MIs, AFib, previous cardiac arrest requiring ECMO in 1 month long hospitalization. He also has a history of COPD and is a former smoker. He has been sick for the past 10 days or so with a mild cough and has gotten more short of breath for the past 5 days or so. In particular for the past couple of days he has had increasing whole body achiness, weakness, chest tightness, worsening cough. He feels like there is fluid in his lungs but he can not cough it out and his cough is largely nonproductive. He has not had any objectively measured fevers. He has not had any new lower extremity edema and his weight has overall been stable over the past few days. Over the long-term he has been working on losing weight. He has been taking all of his prescription meds, including his Eliquis. He has been fairly resistant to his family's recommendation that he come to the doctor but today he agreed to come. He has been using his albuterol inhaler at home and last used a couple of hours ago. He does feel like it helps a little bit, temporarily. He has been having chest tightness and squeezing in his lungs for the past couple of days. He has been fairly continuous. He is not really having intermittent or exertional chest pain. Related Data Home Medications ?Medication ?Instructions ?Recorded ?Confirmed albuterol sulfate 90 mcg/actuation 2 puff inhalation Q4H PRN dyspnea 11/04/24 11/04/24 aerosol inhaler apixaban 5 mg tablet (Eliquis) 5 mg PO BID 11/04/24 11/04/24 aspirin 81 mg tablet,delayed 81 mg PO DAILY 11/04/24 11/04/24 release atorvastatin 10 mg tablet 10 mg PO QPM 11/04/24 11/04/24 carvedilol 6.25 mg tablet 6.25 mg PO BID 11/04/24 11/04/24 fluticasone fur. 100 mcg-umeclid 1 ea inhalation DAILY 11/04/24 11/04/24 62.5 mcg-vilant 25 mcg inhalat.powder (Trelegy Ellipta) furosemide 20 mg tablet 20 mg PO DAILY 11/04/24 11/04/24 sotalol 80 mg tablet mg PO 11/04/24 tamsulosin 0.4 mg capsule 0.4 mg PO DAILY 11/04/24 11/04/24 trazodone 100 mg tablet 100 mg PO QPM 11/04/24 11/04/24 triamcinolone acetonide 0.1 % applic topical BID 11/04/24 topical cream Allergies Allergy/AdvReac Type Severity Reaction Status Date / Time pneumococcal vaccine AdvReac Intermediate Verified 11/04/24 20:51 PFSH PFSH Social History Smoking Status: Former smoker Do you use any of these nicotine containing products: None How often do you have a drink containing alcohol: 2-4 times a month AUDIT-C Alcohol total score: 2 Non-prescribed substance use: denies use service: No Exam Narrative: Exam Narrative: Constitutional: Appears well-developed and well-nourished. Alert. Polite and conversant. Normal mental status. He was hypoxic on room air so now is on OxyMask. He is requiring 5 L to maintain sats in the mid 90s. Overall respirations are unlabored. He is not tachypneic, retracting, tripoding or showing signs of respiratory distress. He he does have audible wheezing and has wheezing confirmed by lung auscultation. HENT: Head: Atraumatic. Nose: Nose normal. Mouth/Throat: Oral mucosa is clear and moist. no trismus. Pharynx normal. Tonsils symmetric. No tonsillar enlargement, erythema, or exudate. Eyes: Conjunctivae normal. EOM normal. Pupils equal, round, and reactive to light. No scleral icterus. Neck: Normal range of motion. Neck supple. No tracheal deviation present. No JVD Cardiovascular: Normal rate, regular rhythm. No gallop. No friction rub. No murmur heard. Symmetric radial and PT artery pulses Pulmonary/Chest: Effort normal. No stridor. No respiratory distress. He is hypoxic and requires 5 L OxyMask. He does have bilateral Episeal wheezing. Also some questionable rales in both bases, perhaps worse on the right than on the left. Fairly prominent wheezing. Abdominal: Soft. No distension. No mass. No tenderness. No rebound. No guarding. Musculoskeletal: RUE: Normal range of motion. No tenderness. No deformity LUE: Normal range of motion. No tenderness. No deformity RLE: Normal range of motion. Trace edema. No tenderness. No deformity LLE: Normal range of motion. Trace edema. No tenderness. No deformity Neurological: Alert and oriented to person, place, and time. Normal strength. CN II-VII intact. No sensory deficit. GCS eye subscore is 4. GCS verbal subscore is 5. GCS motor subscore is 6. Normal coordination Skin: Skin is warm and dry. No rash noted. No pallor. Normal capillary refill. Psychiatric: Normal mood. Normal affect. Const: Vital Signs, click to edit/add: Vital Signs - 24 hr 11/04/24 18:58 11/04/24 19:04 11/04/24 19:21 Temperature 98.0 F Pulse Rate [Pulse Oximeter] 88 Respiratory Rate 28 H Blood Pressure [Ri ght Upper Arm] 160/86 H Pulse Oximetry 84 L 83 L Oxygen Delivery Me thod Room Air Room Air Oxygen Flow Rate 11/04/24 19:22 11/04/24 20:00 11/04/24 21:16 Temperature Pulse Rate [Pulse Oximeter] 79 Respiratory Rate 20 Blood Pressure [Ri ght Upper Arm] 152/70 H Pulse Oximetry 98 96 92 Oxygen Delivery Me thod OxyMask OxyMask Room Air Oxygen Flow Rate 10 5 11/04/24 21:17 Temperature Pulse Rate [Pulse Oximeter] Respiratory Rate Blood Pressure [Ri ght Upper Arm] Pulse Oximetry 95 Oxygen Delivery Me thod OxyMask Oxygen Flow Rate 5 Course Course ED Course: Recheck-after DuoNeb lung sounds are improved but still slightly wheezy in particular in the apices. Albuterol neb ordered. Still requiring oxygen to keep sats in the 90s. Reevaluation(s) Reevaluation #1: Recheck-after 2nd neb (albuterol) wheezes are resolved. He still has some rales in the bases, and definitely has asymmetric right more than left rales. Still hypoxic on room air and sats drift down to the mid 80s when I take off his oxygen but come right up to the 90s when I put him on 4 L. Chest x-ray is clear by Radiology. Labs show BNP equivocally abnormal at 600. However in the absence of weight gain and peripheral edema, I have lower suspicion for CHF. Although his wheezing is now resolved, he remains hypoxic. I question some other occult lung pathology causing hypoxia. Although he is therapeutic on his Eliquis for stroke prophylaxis for AFib, which lowers his risk for PE, will obtain CT pulmonary angiogram to make sure there is not a breakthrough PE, or some other occult lung parenchymal abnormality such as occult pulmonary edema or occult pneumonia. Recheck-CT is back and radiology read shows a subtle right lower lobe ground-glass opacity. Potentially community-acquired pneumonia. Rocephin and Zithromax ordered. Recheck-continues to do well. Breathing easily on 4 L. conversant. Speaking full sentences. Respiratory rate is normal. Discussed with hospitalist who requests ABG before she can admit. I asked her to come down to evaluate the patient and determine at the bedside if she truly needs that additional lab value. She came to evaluate in still request the ABG. Vital Signs Vital signs: Initial Vital Signs Respiratory Effort Labored, Short of Breath, Abdominal Breathing, SOB at Exertion, Tachypnea, Shallow Breathing, Shortness of Breath at Re 11/04/24 18:57 Respiratory Depth Shallow 11/04/24 18:57 Respiratory Pattern Normal 11/04/24 18:57 Vital Signs Pulse Rate 88 11/04/24 18:58 Respiratory Rate 28 H 11/04/24 18:58 Blood Pressure 160/86 H 11/04/24 18:58 Pulse Oximetry 84 L 11/04/24 18:58 Oxygen Delivery Method Room Air 11/04/24 18:58 Temperature 98.0 F 11/04/24 19:04 Pulse Rate 79 11/04/24 21:16 Respiratory Rate 20 11/04/24 21:16 Blood Pressure 152/70 H 11/04/24 21:16 Pulse Oximetry 95 11/04/24 21:17 Oxygen Delivery Method OxyMask 11/04/24 21:17 Oxygen Flow Rate 5 11/04/24 21:17 Medications Administered Medications: Generic Name Dose Route Start Last Admin Trade Name Freq PRN Reason Stop Dose Admin Ceftriaxone Sodium 1 gm/ 100 mls @ 200 mls/hr 11/04/24 21:24 11/04/24 21:47 Sodium Chloride IVPB 11/04/24 21:25 200 mls/hr ONCE ONE Administration Discontinued Medications Generic Name Dose Route Start Last Admin Trade Name Freq PRN Reason Stop Dose Admin Albuterol 2.5 mg 11/04/24 19:23 11/04/24 19:36 Albuterol Sulfate 2.5 Mg/3 Ml Vial.Neb NEB 11/04/24 19:24 2.5 mg ONCE ONE Administration Albuterol/Ipratropium 1 neb 11/04/24 19:09 11/04/24 19:17 Iprat-Albut 0.5-2.5 Mg/3 Ml Neb IH 11/04/24 19:10 1 neb ONCE ONE Administration Methylprednisolone Sodium Succinate 125 mg 11/04/24 19:23 11/04/24 19:36 Methylprednisolone Sod Succ 62.5 Mg/Ml (125) IVP 11/04/24 19:24 125 mg ONCE ONE Administration Medical Decision Making [facility] Narrative Medical decision making narrative: This patient presents to the ER today for evaluation of c cough, shortness of breath, chest tightness ongoing for the past several days but getting worse today.. Differential was broad. Patient has a history of AFib and is on Eliquis, sotalol, metoprolol. No evidence of palpitations, syncope or other cardiac dysrhythmia. We considered possible ACS, however workup with EKG and troponin is negative. Given continuous chest tightness for the past couple of days, undetectable troponin at this point is reassuring for the absence of acute coronary syndrome. EKG shows no evidence for pericarditis. Clinical presentation not suggestive of myocarditis. EKG does show low voltage QRS. CT scan does not show any sign of pericardial effusion. Chest x-ray shows no evidence for pneumonia, pneumothorax, pulmonary edema, pleural effusion, rib fracture, cardiomegaly. Mediastinum is normal on the x-ray. The patient has no ripping or tearing pain through to the back and has symmetric pulses on exam, no other acute neuro findings so I doubt aortic dissection. Risk of radiation and contrast exposure would outweigh the benefit of CT aortogram. When he presented he was wheezing quite substantially with tight lung sounds. He received DuoNeb, albuterol neb, IV Solu-Medrol and wheezing lung sounds are substantially improved. Despite that he has persistent hypoxia. Although the patient has been taking Eliquis lately, with clear chest x-ray and persistent hypoxia concern is for occult pulmonary pathology. This prompts CT scan. CT is negative for PE but does show evidence for faint ground-glass opacities in the right lung. He is negative for COVID/influenza/RSV by nasal PCR. With history of cough for the past couple of weeks, consider possible pulmonary inflammation from COVID. However , COVID PCR is negative. In any case, he would be outside the window for treatment with Paxlovid. His already recent IV steroids (initially order to treat possible COPD exacerbation). With this lung infiltrate, will start him on antibiotics for community-acquired pneumonia. He will clearly require hospitalization because he remains hypoxic. At this point he is on 4 L OxyMask and mentating normally, breathing easily, and saturating in the mid 90s. He is not showing signs of respiratory fatigue that will require intubation. Discussed with our hospitalist, Dr. Coy. She graciously came to the ER to evaluate this patient and preliminarily accepts him for admission. She has ordered additional testing including a follow-up troponin I and an arterial blood gas. She will contact my partner Dr. Gaxiola after those test results are back to finalize the admission. Therefore I have not placed the formal ?admit to obs ?order in the computer program. Lab Data Labs: Lab Results 11/04/24 11/04/24 11/04/24 Range/Units 19:05 19:24 19:45 WBC 6.06 (4.50-11.00) K/uL RBC 4.78 (4.30-5.90) m/uL Hgb 15.0 (13.5-17.5) gm/dL Hct 42.6 (37.0-53.0) % MCV 89 (80-100) fL MCH 31 (26-34) pg MCHC 35 (32-36) gm/dL RDW Coeff of Janis 11.7 (11.5-15.5) % Plt Count 145 (140-440) K/uL Neut % (Auto) 67.1 (42.0-72.0) % Lymph % (Auto) 18.5 L (20-44) % Culberson % (Auto) 12.4 H (0.0-11.0) % Eos % (Auto) 0.8 (0.0-7.0) % Baso % (Auto) 0.2 (0.0-3.0) % Neut # (Auto) 4.07 (1.7-7.0) K/uL Lymph # (Auto) 1.10 (0.90-2.90) K/uL Culberson # (Auto) 0.80 (0.00-0.90) K/UL Eos # (Auto) 0.05 (0.00-0.50) K/uL Baso # (Auto) 0.01 (0.00-0.30) K/uL Abs Immat Gran (auto) 0.06 (0.00-0.30) K/uL Imm/Tot Granulo (auto) 1.0 % Sodium 135 (135-149) mmol/L Potassium 4.2 (3.6-5.1) mmol/L Chloride 97 (96-114) mmol/L Carbon Dioxide 27 (20-32) mmol/L Anion Gap 11 (7-15) mEq/L BUN 15 (7-30) mg/dL Creatinine 0.9 (0.5-1.5) mg/dL Estimated GFR 90 ml/min Glucose 147 H (60-115) mg/dL Lactate 2.0 H (0.5-1.9) mmol/L Calcium 9.2 (8.4-10.6) mg/dL NT-Pro-B Natriuret Pep 609 pg/mL SARS-CoV-2 (PCR) Negative SARS-CoV-2 (Negative) Influenza Type A (PCR) Negative PCR FLU A (Negative) Influenza Type B (PCR) Negative PCR FLU B (Negative) RSV (PCR) Negative PCR RSV (Negative) POC Troponin I 0.00 L (0.01-0.04) ng/ml Imaging Data Chest x-ray: Attestation: I have reviewed the pertinent imaging results. Radiologist's impression: IMPRESSION: 1. No acute cardiopulmonary disease is seen. CT scan - chest: Attestation: I have reviewed the pertinent imaging results. Radiologist's impression: IMPRESSIONS: 1. No CT evidence of acute pulmonary emboli seen. 2. Ill-defined mild peribronchial ground-glass infiltrates are present within the right lower lobe. Findings may be due to early pneumonia and/or bronchiolitis. 3. Severe atherosclerotic calcifications are noted in the coronary arteries. ECG Data Attestation: I personally reviewed and interpreted this ECG as follows: Interpretation: Normal sinus rhythm Rate: 89 OK: 192 QRS axis: Normal axis. Low QRS voltage ST segment/T wave: No ST segment elevation or depression. Nonspecific T-wave flattening. QTc: 469 Discharge Plan Discharge Clinical Impression: Hypoxic respiratory failure, RLL pneumonia, COPD exacerbation Patient Disposition: Admitted As Observation
[2024-11-04] MEDS: IPRAT-ALBUT 0.5-2.5 MG/3 ML NEB 1 NEB IH (19:17)
--- NOTE | 2024-11-04 19:23 | CRLHL7_ITS ---
For Patients: As a result of the Century Cures Act, medical imaging exams and procedure reports are released immediately into your electronic medical record. You may view this report before your referring provider. If you have questions, please contact your health care provider. INDICATION: Cough, shortness of breath, chest tightness, wheezy apices, rales bases TECHNIQUE: Chest radiograph 2 views COMPARISON: None FINDINGS: The sensitivity and specificity of the exam are moderately limited by the patient`s body habitus. Mediastinum: The mediastinum is normal in appearance. The heart silhouette is normal in size and morphology. Lung: Both lungs are unremarkable in appearance. No sign of pleural effusion seen. No pneumothorax is identified. Bone and Soft tissue: Unremarkable for age. IMPRESSION: 1. No acute cardiopulmonary disease is seen. Dictated by: Constantine Velasquez MD @ 11/04/2024 19:58:52 (Electronically Signed)
[2024-11-04 19:35] LABS: Chloride* 97 mmol/L (96-114); Potassium* 4.2 mmol/L (3.6-5.1); Sodium* 135 mmol/L (135-149)
[2024-11-04] MEDS: METHYLPREDNISOLONE SOD SUCC 62.5 MG/ML (125) 125 MG IVP (19:36)
[2024-11-04] MEDS: ALBUTEROL SULFATE 2.5 MG/3 ML VIAL.NEB NEB ×2 (19:36→23:01)
[2024-11-04 19:38] LABS: Basophils Absolute Auto 0.01 K/uL (0.00-0.30); Basophils Percent Auto 0.2 % (0.0-3.0); Blood Urea Nitrogen* 15 mg/dL (7-30); Creatinine* 0.9 mg/dL (0.5-1.5); Eosinophils Absolute Auto 0.05 K/uL (0.00-0.50); Eosinophils Percent Auto 0.8 % (0.0-7.0); Estimated Glomerular Filt Rate 90 ml/min; Hematocrit 42.6 % (37.0-53.0); Immature Granulocytes Abs Auto 0.06 K/uL (0.00-0.30); Lymphocytes Percent Auto 18.5 % (20-44); Mean Corpuscular HGB Conc 35 gm/dL (32-36); Mean Corpuscular Hemoglobin 31 pg (26-34); Mean Corpuscular Volume 89 fL (80-100); Monocytes Percent Auto 12.4 % (0.0-11.0); Neutrophils Absolute Auto 4.07 K/uL (1.7-7.0); Neutrophils Percent Auto 67.1 % (42.0-72.0); Platelet Count* 145 K/uL (140-440); RDW Coefficient of Variation % 11.7 % (11.5-15.5); Red Blood Count 4.78 m/uL (4.30-5.90); White Blood Count* 6.06 K/uL (4.50-11.00)
[2024-11-04 19:39] LABS: Anion Gap 11 mEq/L (7-15); Calcium* 9.2 mg/dL (8.4-10.6); Carbon Dioxide* 27 mmol/L (20-32); Glucose* 147 mg/dL (60-115)
[2024-11-04 19:40] LABS: Slide Review Reflex No
[2024-11-04 19:48] LABS: NT Pro B Type NatriureticPept* 609 pg/mL
--- OUTSIDE RECORDS SUMMARY | 2024-11-04 19:57 | XMS_ITS | Clinical Summary ---
Author Organization [facility] Address [address] [place] [address] Care Team Providers Care Station Attendant Name Role Phone Licha Henderson MD Primary Care Provider [phone] Lambert Cullen MD Unavailable [phone]- [phone] Allergies Active Allergy Reactions Criticality Noted Date [...] albuterol HFA (PRO-AIR; VENTOLIN; PROVENTIL) 90 mcg/actuation inhalerIndications:Receiving Teller pebbles obstructive pulmonary disease, unspecified COPD type (HC) INHALE 2 PUFFS EVERY 4 HOURS NEEDED FOR SHORTNESS OF BREATH 3 Each 3 06/04/20 24 Active sildenafiL, pulm.hypertension, (REVATIO) 20 mg tabletIndications:Erect ile dysfunction, unspecified erectile dysfunction type Take 2 tabs 30-60 minutes as needed 30 Tablet 10 06/20/20 24 Active Trelegy Ellipta 100-62.5-25 mcg inhalerIndications:Receiving Teller pebbles obstructive pulmonary disease, unspecified COPD type [...] (HC),Chest pain, unspecified type,Coronary artery disease involving [place] coronary artery of [place] heart with unstable angina pectoris (HC),PVC (premature ventricular contraction) Take 1 Tablet (50 mg) by mouth two times daily. 180 Tablet 2 09/13/19 25 Active metoprolol tartrate 50 mg tabletIndications:Parox ysmal atrial fibrillation (HC),Chest pain, unspecified type,Coronary artery disease involving [place] coronary artery of [place] heart with unstable angina pectoris (HC),PVC (premature [...] artery disease of n ative artery of [place] heart with stable angina pectoris 08/25/2019 Chronic [...] thrombectomy and bare metal stent placement at [place] Personal history of colonic polyps 06/14/2012 Hyperlipidemia 05/16/2012 BPH (benign prostatic hypertrophy) 11/09/2009 Erectile Dysfunction 11/01/2006 CHRONIC BILATERAL SHOULDER PAIN 08/04/2006 ASCVD (arteriosclerotic cardiovascular disease) 09/13/2005 Overview (12/26/2013): -Acute CA treated with lytics at [place] in 1996 -Acute Inferior wall CA 10/2003 -Stenting of RCA 10/16/2003 -Stenting of [...] cardiomyopathies 12/30/201811/15 Coronary artery disease invo lving [place] coronary artery of [place] heart 10/31/2018 11/10/19 Chest pain 03/29/2017 05/08/2018 [...] Type Department Care Team Description 10/24/[address] [phone] Licha Henderson MD ACC Order Request (LYMPHEDEMA) 10/10/[address] [phone] Licha Henderson MD Message (Blood thinner inquiry) 09/13/2024 Refill [facility] [address] [place] [address] Jayden Monroe MD Refill Request 09/12/2024 Telephone [facility] [address] [place] [address] Jayden Monroe MD Refill Request (Metoprolol & Carvedilol) 09/12/2024 Refill [facility] [address] [place] [address] Licha Henderson MD Refill Request (Metoprolol Tartrate, Sotalol) 09/11/2024 Refill [facility] [address] [place] [address] Jayden Monroe MD Refill Request (Sotalol & metoprolol tartrate) 09/11/2024 Refill [facility] [address] [place] [address] Licha Henderson MD Refill Request (Trelegy Ellipta, Trazodone) 08/28/2024 Telephone [facility] [address] [place] [address] Dede Melendrez MD Cardiology Appointment from Last [...] Daughter Unique Grider on Heart Disease Father CA age 71 Heart attack Father Hypertension Father [...] on file Legal Sex Male 5:23 AM 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 Gender Identity Not on file Sexual Orientation Not on file Occupation Industry Job Start Date Job End Date Not on file Not on file Not on file Not on file Obstetrics History Last Filed Vital Signs Vital Sign Reading Time Taken Comments Blood Pressure 148/88 05/29/2024 11:18 AM 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 Pulse 68 05/29/2024 11:18 AM 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 Temperature 36.6 C (97.9 F) 03/20/2024 8:46 AM CDT Respiratory Rate 16 03/20/2024 8:46 AM CDT Oxygen Saturation 96% 05/29/2024 11:18 AM 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 Inhaled Oxygen Concentration - - Weight 120.7 kg (266 lb) 05/29/2024 11:18 AM 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 Height 170.2 cm (5' 7) 05/29/2024 11:18 AM 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 Body Mass Index 41.66 05/29/2024 11:18 AM 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 Plan of Treatment Upcoming Encounters Date Type Department Care Team (Late st Contact Info) Description 11/06/2024 2:15 PM CDT Appointment [address] [address] Yasmin Guerra, OT [address] [place] [address] 11/07/2024 3:00 PM CDT Office Visit [address] [phone] Licha Henderson MD [address] [place] [address] 11/09/2024 12:15 PM CDT Appointment [address] [address] Yasmin Guerra, OT [address] [place] [address] 11/13/2024 2:30 PM CDT Appointment [address] [place] [address] Yasmin Guerra, OT [address] [place] [address] 11/15/2024 3:15 PM CDT Appointment [address] [place] [address] Yasmin Guerra, OT [address] [place] [address] 11/20/2024 3:15 PM CDT Appointment [address] [address] Yasmin Guerra, OT [address] [place] [address] 11/22/2024 3:15 PM CDT Appointment [address] [address] Yasmin Guerra, OT [address] [facility] [place] [address] 11/27/2024 2:30 PM CDT Appointment [address] [address] Yasmin Guerra, OT [address] [place] [address] 11/29/2024 2:30 PM CDT Appointment [address] [address] Yasmin Guerra, OT [address], [place] [address] 12/11/2024 3:15 PM CDT Appointment [address] [address] Yasmin Guerra, OT [address] [place] [address] 12/14/2024 3:15 PM CDT Appointment [address] [address] Yasmin Guerra, OT [address] [place] [address] 12/18/2024 10:30 AM CDT Office Visit [facility] [address] [place] [address] Orlin Jimenez MD [address] [facility] [address] [place] [address] 12/19/2024 3:15 PM CDT Appointment [address] [address] Yasmin Guerra, OT [address], [place] [address] 12/21/2024 3:15 PM CDT Appointment [address] [address] Yasmin Guerra, OT [address] [place] [address] Health Maintenance Due Date Last Done Comments [...] Completed 08/24/2019 Medical Devices Implanted Type Area Nurse Unit Manager Device Identifier Shelf Expiration Date Model / Serial / Lot Iol Ashley +21 Tecnis Zcb00 - [id number] Implanted:Qty: 1 on 12/19/2019 by Oren Cameron Jr., MD at [facility] [place] [facility] Left: Eye [employer] 03/09/2023 ZCB00 21.0# / [id number] / Procedures Procedure Name Priority Date/Time Associated Diagnosis Comments LIPID PANEL Routine 12/20/2023 7:34 AM CDT Dyslipidemia COLONOSCOPY 03/11/2020 8:04 AM CDT ANTI HCV Routine 08/24/2019 11:30 AM 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 Need for hepatitis C screening test CT ABDOMEN PELVIS W Routine 12/12/2017 2 :04 PM CDT Abdominal pain, RUQ (right upper quadrant) Abdominal pain, LUQ (left upper quadrant) from Last 3 Months or Most Recently Relevant to Health Maintenance Results * (ABNORMAL) LIPID PANEL (12/20/2023 7:34 AM CDT) Pathologist [facility] CHOLESTEROL,TOTAL 193 100 - 199 mg/dL 12/20/2023 8:19 AM [facility] Comment: Cholesterol, Total Reference Ranges Desirable <200 mg/dL Borderline 200-239 mg/dL High >=240 mg/dL TRIGLYCERIDES 191(H) <150 mg/dL 12/20/2023 8:19 AM [facility] HDL CHOLESTEROL 50 >40 mg/dL 8:19 AM [facility] NON-HDL CHOLESTEROL 143 <145 mg/dl 12/20/2023 8:19 AM [facility] CHOL/HDL RATIO 3.86 <4.50 12/20/2023 8:19 AM [facility] LDL CHOLESTEROL 105 <=130 mg/dL 12/20/2023 8:19 AM [facility] VLDL CHOLESTEROL 38(H) <=30 mg/dL 12/20/2023 8:19 AM [facility] PROVIDER ORDERED STATUS RANDOM 12/20/2023 8:19 AM [facility] Blood BLOOD SPECIMEN / Unknown Venipuncture / Unknown 12/20/2023 7:34 AM CDT 12/20/2023 7:36 AM CDT [facility] Titus Melendrez MD CHEMISTRY Final Result [facility] [address] [place] [address] * COLONOSCOPY (03/11/2020 8:04 AM CDT) 03/11/2020 8:04 AM CDT Narrative Transcriptions Fiona Shelton, - 04/06/2020 9:59 AM CDT Patient Name: Dorian Spencer Procedure Date: 03/11/2020 Gender: Male Date of : 1950 Admit Type: Ambulatory Procedure: Colonoscopy Proceduralist: Fiona Shelton MD [facility] Indications/Pre-Op Diagnosis: High risk colon cancer [...] Result * ANTI HCV (08/24/2019 11:30 AM 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) HEPATITIS C ANTIBODY Non-React melisa Non-React melisa 08/24/2019 10:06 PM 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 [facility] Comment:Antibodies to HCV no t detected; does not exclude the possibility of exposure to HCV. Blood BLOOD SPECIMEN / Unknown Venipuncture / Unknown 08/24/2019 11:30 AM 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 08/24/2019 11:32 AM 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 us Licha Henderson MD SEND OUTS Final Res ult [facility] [address] [place] [address], [place] * CT ABDOMEN PELVIS W (12/12/2017 [...] MEDICARE PART A HB ONLY [place] MR PB ONLY [place] HB ONLY MEDICARE PART B HB ONLY [facility] Advance Directives * Full Code (Latest Code [...] 10:43 AM 12/16/2017 5:56 PM Care Teams Station Attendant Relationship Specialty Start Date End Date Licha Henderson MD [address] [facility] [place] [address] PCP - General Internal Medicine 12/10/13 Lambert Cullen MD [address] [place] [address] Cardiovascular Disease 03/28/17
--- OUTSIDE RECORDS SUMMARY | 2024-11-04 19:57 | XMS_ITS | Encounter Summary ---
Author Organization [facility] Address [address] [place] [address] Care Team Providers Care Director Sales And Marketing Name Role Phone Unavailable Primary Care Provider Unavailabl e Encounter Details Date Type Department Care Team (Late st Contact Info) Description 10/15/2024 Orders Only Department of Ophthalmology in [place], [place] [address] [place] [address] [facility], Provider, Cataract Social History Tobacco Use Types [...] often do you attend chur ch or jain services? 1 to 4 times per year 11/12/2019 Do you belong to any clubs o r organizations such as voodoo groups, unions, fraternal or athletic groups, or [...] and heating? Not hard at all 05/23/2023 [facility] [place] of Occupat ional Health - Occupational Stress [...] Sex Assigned at Male 05/23/2023 8:42 AM BYPRODUCTS EXTRACTOR Legal Sex Male 5:52 PM BYPRODUCTS EXTRACTOR Gender Identity Male 05/23/2023 8:42 AM BYPRODUCTS EXTRACTOR Sexual Orientation Straight 05/23/2023 8: 42 AM BYPRODUCTS EXTRACTOR documented as of this encounter Plan of Treatment Not on file documented as of this encounter Visit Diagnoses Diagnosis Cataract documented in this encounter Additional Health Concerns Assessment Noted Time PHQ-9 Depression Total Score: 3 02/14/20 15 8:52 AM CDT documented as of this encounter
--- OUTSIDE RECORDS SUMMARY | 2024-11-04 19:57 | XMS_ITS | Encounter Summary ---
Author Organization [facility] Address [address] [place] [address] Care Team Providers Care Staffing Manager Name Role Phone Unavailable Primary Care Provider Unavailabl e Encounter Details Date Type Department Care Team (Latest Contact Info) Description 10/25/2024 Clinical Communication Department of Ophthalmology in [place], [place] [address] [place] [address] Orlin Tucker M.D. [address] [place] [address] Social History Tobacco Use Types Packs/Day Years [...] often do you attend chur ch or restorationism services? 1 to 4 times per year 11/12/2019 Do you belong to any clubs o r organizations such as methodist groups, unions, fraternal or athletic groups, or [...] and heating? Not hard at all 05/23/2023 [facility] of Occupat ional Health - Occupational Stress [...] your living situation today? [facility] 05/23/2023 Education Answer Date Recorded What is the highest level of school you have completed or the highest degree you have received? Some college, no degree 11/12/2019 Sex and Gender Information Value Date Recorded Sex Assigned at Male 05/23/2023 8:42 AM BANDAGE MAKER Legal Sex Male 5:52 PM BANDAGE MAKER Gender Identity Male 05/23/2023 8:42 AM BANDAGE MAKER Sexual Orientation Straight 05/23/2023 8: 42 AM BANDAGE MAKER documented as of this encounter Plan of [...]
--- OUTSIDE RECORDS SUMMARY | 2024-11-04 19:58 | XMS_ITS | Clinical Summary ---
Author Organization [facility] Address [address] [place] [address] Care Team Providers Care Ditcher Operator Name Role Phone Unavailable Primary Care Provider Unavailabl e Source Comments Patient records contain information from all sites at [facility]. For routine questions regarding patient records, call [phone] during business hours, M-F 8:00 AM - 5:00 PM Central Time. Record requests for emergency care only can be directed to [phone] at any time.[facility] Allergies Active Allergy Reactions Criticality Noted Date [...] Right 08/04/2006 Atherosclerotic Heart Diseas e Of [place] Coronary Artery Without Angina Pectoris 09/13/2005 Overview (04/18/2023): -Acute [place] treated with lytics at [place] in 1996 -Acute Inferior wall [place] 10/2003 -Stenting of RCA 10/16/2003 -Stenting of LAD, proximal OM1 10/18/2003 -LAD stenting 09/2005 -Angiogram 08/05/2006 Patent LAD, LCX and RCA stents -Adenosine Stress Myoview 08/06/2009 Area of moderate ischemia in the inferior wall EF 55% Encounters Date Type Department Care Team Description 10/25/2024 Clinical Communication Department of Ophthalmology in [place], [place] [address] [place] [address] Orlin Tucker M.D. 10/15/2024 Orders Only Department of Ophthalmology in [place], [place] [address] [place] [address] [facility] Cataract 09/03/2024 Orders Only Department of Urology in [place], [place] [address] [place] [address] Yudelka Lindsey APRN, C.N.P. 08/31/2024 Clinical Communication Department of Urology in [place], [place] [address] [place] [address] Yudelka Lindsey APRN, C.N.P. from Last 3 [...] often do you attend chur ch or muslim services? 1 to 4 times per year 11/12/2019 Do you belong to any clubs o r organizations such as buddhist groups, unions, fraternal or athletic groups, or [...] and heating? Not hard at all 05/23/2023 [facility] [place] of Occupat ional Health - Occupational Stress [...] your living situation today? I have a [facility] place to live 05/23/2023 Education Answer Date Recorded What is the highest level of school you have completed or the highest degree you have received? Some college, no degree 11/12/2019 Sex and Gender Information Value Date Recorded Sex Assigned at Male 05/23/2023 8:42 AM TRACK REPAIR PERSON Legal Sex Male 5:52 PM TRACK REPAIR PERSON Gender Identity Male 05/23/2023 8:42 AM TRACK REPAIR PERSON Sexual Orientation Straight 05/23/2023 8: 42 AM TRACK REPAIR PERSON Last Filed Vital Signs Vital Sign Reading [...] this topic Medical Devices Implanted Type Area Clay Miner Device Identifier Shelf Expiration Date Model / Serial / Lot Jose Stent 4.0 X 20 - Acuna [id number] Implanted:Qty: 1 on 03/21/2014 Cardiac Stent [employer] Description:Device Manufactu rer - [employer]. Device Status Text - [id number]. Gelsoft-Str 8mm X 30cm - Acuna [id number] Implanted:Qty: 1 on 03/21/2014 Vascular Graft Other/Legacy - See Implant Description [employer] Description:Device Manufactu rer - [employer]. Body Location - Other. Not Applicable. Device Status Text - [id number]. Procedures Procedure Name Priority Date/Time Associated Diagnosis Comments ELECTROLYTE (CHEM 4) PANEL, S/P Routine 04/23/2014 4:[address] ABDOMEN PELVIS WITHOUT IV CONTRAST Routine 03/31/2014 9:21 AM CDT from Last 3 Months or Most Recently Relevant to Health Maintenance Results * (ABNORMAL) Electrolyte (Chem 4) Panel (04/23/2014 4:46 AM CDT) Sodium, S 139 135 - 145 MMOL/L [facility] Potassium, S 4.9 3.6 - 5.2 MMOL/L [facility] eGFR-Black/Afri can Mosotho >60 >60 ML/MIN/BSA [facility] BUN (Blood Urea Nitrogen), S 13 8 - 24 MG/DL [facility] Chloride, S 102 98 - 107 MMOL/L [facility] HX Bicarbonate, P/S 30(H) 22 - 29 MMOL/L [facility] Creatinine 1.2 0.8 - 1.3 MG/DL [facility] eGFR Non-Black/Afric an Mosotho >60 >60 ML/MIN/BSA [facility] Anion Gap 7 7 - 15 [facility] Glucose, S 93 70 - 140 MG/DL [facility] 04/23/2014 4:46 AM CDT 04/23/2014 4:46 AM CDT us Angela Kramer APRN C.NKeiryPKeiry, M.S.N., RDivina SQUIRES BLOOD ADD-ON Final Result Performing Organization Address City/State/[facility] Co de Phone Number [facility] [address] [place] [address], [facility] * CT Abdomen Pelvis without IV [...] stents. Electronically signed by: Jayden Jose MD [phone] 31-Mar-2014 11:55 Atif Balderrama M.D. [phone] 31-Mar-2014 11:55 Narrative 03/31/2014 11:55 AM CDT [...] stents. Electronically signed by: Jayden Jose MD [phone] 31-Mar-2014 11:55 Atif Balderrama M.D. [id number] 11:55 Edu Vizcarra M.D. IMRaffy CT PROCEDURES Final Res ult from Last 3 Months or Most Recently Relevant to Health Maintenance Insurance [facility] MEDIC[facility]
--- NOTE | 2024-11-04 20:22 | CRLHL7_ITS ---
For Patients: As a result of the Century Cures Act, medical imaging exams and procedure reports are released immediately into your electronic medical record. You may view this report before your referring provider. If you have questions, please contact your health care provider. INDICATION: Shortness of breath, chest tightness, cough, hypoxia TECHNIQUE: CT chest with i.v. contrast using pulmonary angiographic technique. MIPS, coronal and sagittal reformats were obtained. CONTRAST: 95 mL Isovue 370 COMPARISON: None FINDINGS: Cardiovascular: The main pulmonary artery is near the upper limits of normal in size measuring 3 cm. The heart has an unremarkable appearance and size. Ectasia of the ascending aorta is noted measuring 3.4 cm in maximal short axis diameter. Severe atherosclerotic calcifications are noted in the coronary arteries. Mediastinum: No mass or adenopathy seen. Lung: Ill-defined mild peribronchial ground-glass infiltrates are present within the right lower lobe. Mild peribronchial cuffing is present in the lower lobes, lingula, and right middle lobe. Mild lingular atelectasis is seen. Pleura and pericardium: No sign of pleural effusion seen. No significant pericardial effusion is present. Chest wall and axilla: No mass or adenopathy seen. Bone: Unremarkable for age. Upper abdomen: Unremarkable. IMPRESSIONS: 1. No CT evidence of acute pulmonary emboli seen. 2. Ill-defined mild peribronchial ground-glass infiltrates are present within the right lower lobe. Findings may be due to early pneumonia and/or bronchiolitis. 3. Severe atherosclerotic calcifications are noted in the coronary arteries. Dictated by Constantine Velasquez MD @ 11/04/2024 9:17:19 PM Please note that all CT scans at this facility use dose modulation, iterative reconstruction, and/or weight-based dosing when appropriate to reduce radiation dose to as low as reasonably achievable. Dictated by: Constantine Velasquez MD @ 11/04/2024 21:17:53 (Electronically Signed)
[2024-11-04 20:31] LABS: PCR FLU A Negative PCR FLU A (Negative); PCR FLU B Negative PCR FLU B (Negative); PCR RSV Negative PCR RSV (Negative); SARS PCR* Negative SARS-CoV-2 (Negative)
[2024-11-04] MEDS: cefTRIAXone 1 GM in 0.9 % SODIUM CHLORIDE Mini-bag 100 ML IVPB (21:47)
[2024-11-04] MEDS: AZITHROMYCIN 500 MG in 0.9 % SODIUM CHLORIDE 250 ml 250 ML 255 MG IVPB (22:30)
[2024-11-04 22:31] LABS: ABG PCO2 49 mmHG (35-45); Base Excess ABG -0.2 mmol/L (-3.0-3.0); HCO3 ABG 26 mmol/L (21-28); Oxygen Saturation ABG 87 % (92-100); PO2 ABG 53.6 mmHG (80-105); TCO2 ABG 24 mmol/l (21-30); pH ABG 7.34 (7.35-7.45)
[2024-11-04 23:05] LABS: Troponin I* < 0.01 ng/mL (0.01-0.04)
--- NOTE | 2024-11-04 23:15 | PM.IMHP1 ---
Assessment and Plan Assessment and plan (1) Acute hypoxic respiratory failure: Problem comment: -Labored breathing, using accessory muscles, and he was hypoxic with O2 sat in the lower 80s requiring 5 L of oxygen to get to the 90s. -Chest x-ray and CT chest was done at the ED and was negative for PE but is suggesting pneumonia. Trops -ve and EKG not showing acute ischemic changes. -ABGs showing low PO2 at 53, discussed with the patient and his daughter who is a nurse at our hospital that if we filled oxygen mask then BiPAP might be needed, they agreed and they stated that he is a full code and is okay for intubation. -Will treat for COPD exacerbation: Ceftriaxone 2 g, azithromycin, methylprednisone and DuoNebs. -follow-up with VBG/ABGs. -low threshold for BiPAP if patient was clinically deteriorating, got tired or if he has having worse oxygenation. Status: Acute (2) COPD exacerbation: Problem comment: As above Status: Acute (3) RLL pneumonia: Problem comment: As above Status: Acute (4) Coronary artery disease: Problem comment: He has a complex coronary artery history with acute NJ in 1996 that was treated with lytics and repeat NJ in 2003 treated with bare metal stenting to RCA and LAD. 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 After a long resuscitative effort, he was placed on ECMO, and underwent urgent PCI. He then developed persistent atrial fibrillation, requiring cardioversion in 2016. Due to early recurrence of AF, he underwent complex ablation (PVI, CTI, LA roof dependent AFL, and 3 different focal ATs) in August [address] Monroe. He then had recurrent atrial flutter and underwent ablation in November 2018 for LA roof dependent atrial flutter. He was maintained on low-dose sotalol thereafter. Status: Acute (5) History of cardiac arrest: Problem comment: History of ECMO Status: Acute (6) Atrial fibrillation: Problem comment: - s/p complex ablations 08/2017 and 11/2018 - well controlled on sotalol 40 mg BID - [id number] score 3 (HTN, CAD, age x1); on apixaban Status: Acute (7) Ischemic cardiomyopathy: Problem comment: Echo 12/14/2023 1. Normal left ventricular size, mildly increased wall thickness, normal global systolic function, calculated EF of 58 %. 2. Echo contrast was administered to enhance visualization of all left ventricular segments. On Lasix 20 mg Status: Acute Total Time Spent Total Time Spent: Time spent: Today I spent 75 minutes seeing the patient, discussing the patient with ER staff, reviewing Expanse and EPIC notes/diagnostics, discussing the care plan with our care time that includes social work, PT/OT, pharmacy, RT, mcc and documenting my impressions and plan in the medical record. Hospitalist- H&P: [facility] History of Present Illness Date Seen: 11/04/24 Chief complaint: Shortness of Breath Narrative: Dorian Spencer is a 74 year old male with a past medical history of COPD, coronary disease was with previous MIs, previous cardiac arrest (requiring ECMO in 1 month long hospitalization), ischemic cardiomyopathy, hypertension, paroxysmal AFib (on sotalol, Eliquis, metoprolol), CHF (on Lasix), Mars's esophagus, hyperlipidemia, lymphedema, obstructive sleep apnea, BPH who presents to the ED due to severe shortness of breath for the past 5 days in addition to cough and chest tightness. He added that he felt substernal chest pressure 2 days ago that was similar to what he felt when he had an NJ. his cough is nonproductive. He denies fevers changes in weight or increased LE edema. He denies recent admissions for the hospital for COPD exacerbation and that the last time he was admitted was more than a year ago. At the ED, patient was hemodynamically stable, but is having labored breathing, using accessory muscles, and he was hypoxic with O2 sat in the lower 80s requiring 5 L of oxygen to get to the 90s. Chest x-ray and CT chest was done at the ED and was negative for PE but is suggesting pneumonia. Trops -ve and EKG not showing acute ischemic changes. ABGs showing low PO2 at 53, discussed with the patient and his daughter who is a nurse at our hospital that if we filled oxygen mask then BiPAP might be needed, they agreed and they stated that he is a full code and is okay for intubation. Review of Systems Status of ROS: Reports: 6 or more systems reviewed and unremarkable except as noted in History and below PFSH PFSH Social History Smoking Status: Former smoker Do you use any of these nicotine containing products: None How often do you have a drink containing alcohol: 2-4 times a month AUDIT-C Alcohol total score: 2 Non-prescribed substance use: denies use service: No Meds Home Medications and Allergies Home Medications ?Medication ?Instructions ?Recorded ?Confirmed ?Type albuterol sulfate 90 mcg/actuation 2 puff inhalation Q4H PRN dyspnea 11/04/24 11/04/24 History aerosol inhaler apixaban 5 mg tablet (Eliquis) 5 mg PO BID 11/04/24 11/04/24 History aspirin 81 mg tablet,delayed 81 mg PO DAILY 11/04/24 11/04/24 History release atorvastatin 10 mg tablet 10 mg PO QPM 11/04/24 11/04/24 History carvedilol 6.25 mg tablet 6.25 mg PO BID 11/04/24 11/04/24 History fluticasone fur. 100 mcg-umeclid 1 ea inhalation DAILY 11/04/24 11/04/24 History 62.5 mcg-vilant 25 mcg inhalat.powder (Trelegy Ellipta) furosemide 20 mg tablet 20 mg PO DAILY 11/04/24 11/04/24 History sotalol 80 mg tablet mg PO 11/04/24 History tamsulosin 0.4 mg capsule 0.4 mg PO DAILY 11/04/24 11/04/24 History trazodone 100 mg tablet 100 mg PO QPM 11/04/24 11/04/24 History triamcinolone acetonide 0.1 % applic topical BID 11/04/24 History topical cream Allergies Allergy/AdvReac Type Severity Reaction Status Date / Time pneumococcal vaccine AdvReac Intermediate Verified 11/04/24 20:51 Exam Narrative: Exam Narrative: Physical exam GENERAL: Patient with increased work of breathing on 5 liters/minute oxygen. HEAD AND NECK: Atraumatic, normocephalic CARDIOVASCULAR: Normal S1, S2. No murmurs. RESPIRATORY: Good air entry B/L. Diffused wheezes. Pursed lips for breathing. NEUROLOGY: Alert, awake, oriented X 3. Normal speech. PSYCH: Normal mood, normal affect. Const: Vital Signs, click to edit/add: Vital Signs - 24 hr 11/04/24 18:58 11/04/24 19:04 11/04/24 19:21 Temperature 98.0 F Pulse Rate Pulse Rate [Pulse Oximeter] 88 Respiratory Rate 28 H Blood Pressure Blood Pressure [Ri ght Upper Arm] 160/86 H Pulse Oximetry 84 L 83 L Oxygen Delivery Me thod Room Air Room Air Oxygen Flow Rate 11/04/24 19:22 11/04/24 20:00 11/04/24 21:14 Temperature Pulse Rate 80 Pulse Rate [Pulse Oximeter] Respiratory Rate 18 Blood Pressure Blood Pressure [Ri ght Upper Arm] Pulse Oximetry 98 96 92 Oxygen Delivery Me thod OxyMask OxyMask OxyMask Oxygen Flow Rate 10 5 5 11/04/24 21:15 11/04/24 21:16 11/04/24 21:17 Temperature Pulse Rate 79 Pulse Rate [Pulse Oximeter] 79 Respiratory Rate 12 20 Blood Pressure Blood Pressure [Ri ght Upper Arm] 152/70 H Pulse Oximetry 94 92 95 Oxygen Delivery Me thod Room Air OxyMask Oxygen Flow Rate 5 11/04/24 21:17 11/04/24 21:30 11/04/24 21:45 Temperature Pulse Rate 81 84 77 Pulse Rate [Pulse Oximeter] Respiratory Rate 11 L 28 H 11 L Blood Pressure 152/70 H Blood Pressure [Ri ght Upper Arm] Pulse Oximetry 94 91 95 Oxygen Delivery Me thod Oxygen Flow Rate 11/04/24 22:00 11/04/24 22:01 11/04/24 22:15 Temperature Pulse Rate 79 78 Pulse Rate [Pulse Oximeter] Respiratory Rate 22 11 L 30 H Blood Pressure 157/76 H Blood Pressure [Ri ght Upper Arm] Pulse Oximetry 95 95 Oxygen Delivery Me thod OxyMask Oxygen Flow Rate 5 11/04/24 22:30 11/04/24 22:45 11/04/24 23:00 Temperature Pulse Rate 78 80 80 Pulse Rate [Pulse Oximeter] Respiratory Rate 20 28 H 24 Blood Pressure Blood Pressure [Ri ght Upper Arm] Pulse Oximetry 95 92 95 Oxygen Delivery Me thod Oxygen Flow Rate 11/04/24 23:02 Temperature Pulse Rate 80 Pulse Rate [Pulse Oximeter] Respiratory Rate 24 Blood Pressure 132/71 Blood Pressure [Ri ght Upper Arm] Pulse Oximetry 96 Oxygen Delivery Me thod OxyMask Oxygen Flow Rate 5 Hospitalist - H&P: Result Labs Labs: Short CBC 11/04/24 Range/Units 19:05 WBC 6.06 (4.50-11.00) K/uL Hgb 15.0 (13.5-17.5) gm/dL Hct 42.6 (37.0-53.0) % Plt Count 145 (140-440) K/uL BMP 11/04/24 19:05 Sodium 135 Potassium 4.2 Chloride 97 Carbon Dioxide 27 BUN 15 Creatinine 0.9 Glucose 147 H Calcium 9.2 Cardiac Enzymes 11/04/24 Range/Units 22:25 Troponin I < 0.01 (0.01-0.04) ng/mL ECG Attestation: I personally reviewed and interpreted this ECG as follows: ECG interpretation date: 11/04/24 Interpretation: Normal sinus rhythm. Nonspecific T-wave/ST interval changes, no acute ischemic changes Imaging CT scan - chest: Radiologist's impression: INDICATION: Shortness of breath, chest tightness, cough, hypoxia TECHNIQUE: CT chest with i.v. contrast using pulmonary angiographic technique. MIPS, coronal and sagittal reformats were obtained. CONTRAST: 95 mL Isovue 370 COMPARISON: None FINDINGS: Cardiovascular: The main pulmonary artery is near the upper limits of normal in size measuring 3 cm. The heart has an unremarkable appearance and size. Ectasia of the ascending aorta is noted measuring 3.4 cm in maximal short axis diameter. Severe atherosclerotic calcifications are noted in the coronary arteries. Mediastinum: No mass or adenopathy seen. Lung: Ill-defined mild peribronchial ground-glass infiltrates are present within the right lower lobe. Mild peribronchial cuffing is present in the lower lobes, lingula, and right middle lobe. Mild lingular atelectasis is seen. Pleura and pericardium: No sign of pleural effusion seen. No significant pericardial effusion is present. Chest wall and axilla: No mass or adenopathy seen. Bone: Unremarkable for age. Upper abdomen: Unremarkable. IMPRESSIONS: 1. No CT evidence of acute pulmonary emboli seen. 2. Ill-defined mild peribronchial ground-glass infiltrates are present within the right lower lobe. Findings may be due to early pneumonia and/or bronchiolitis. 3. Severe atherosclerotic calcifications are noted in the coronary arteries. Dictated by Constantine Velasquez MD @ 11/04/2024 9:17:19 PM Please note that all CT scans at this facility use dose modulation, iterative reconstruction, and/or weight-based dosing when appropriate to reduce radiation dose to as low as reasonably achievable. Dictated by: Constantine Velasquez MD @ 11/04/2024 21:17:53
[2024-11-05] VITALS (9 sets, daily range): BP systolic 130–149; BP diastolic 55–96; PULSE 75–101; RESP 20–28; TEMP 35.6–36.9; O2SAT 89–93; BMI 40.2
[2024-11-05] MEDS: IPRAT-ALBUT 0.5-2.5 MG/3 ML NEB 1 NEB IH ×5 (00:20→23:30)
[2024-11-05] MEDS: cefTRIAXone 1 GM in 0.9 % SODIUM CHLORIDE Mini-bag 100 ML IVPB (00:20)
[2024-11-05] MEDS: TRAZODONE HCL 50 MG TABLET 100 MG PO ×2 (00:42→18:07)
[2024-11-05] MEDS: METHYLPREDNISOLONE SOD SUCC 62.5 MG/ML (125) 125 MG IVP ×3 (04:39→19:38)
[2024-11-05 06:33] LABS: HCO3 VBG 28 mmol/L (21-28); PCO2 VBG 52 mmHG (40-50); PO2 VBG 47.5 mmHG (25-47); pH VBG 7.338 (7.32-7.43)
--- NOTE | 2024-11-05 06:41 | PC.NURSE ---
End of shift: Pt arrived to the unit @ 2330 via bed, accompanied by self. AxOx4, pleasant, and cooperative with cares. Pt tolerating 2-5L via oxymask with sats around 90%. Pt reported that he had not slept in two days. Placing Judge allowed patient to rest for majority of the shift. Continent of the bladder. No pain present. SBA, SOB with activity/inactivity. SL. NSR on TELE. Active dry cough. Pt appears resting with call light in reach.
[2024-11-05 06:42] LABS: Hematocrit 41.1 % (37.0-53.0); Hemoglobin* 14.5 gm/dL (13.5-17.5); Mean Corpuscular HGB Conc 35 gm/dL (32-36); Mean Corpuscular Hemoglobin 31 pg (26-34); Mean Corpuscular Volume 89 fL (80-100); Platelet Count* 142 K/uL (140-440); Red Blood Count 4.64 m/uL (4.30-5.90); White Blood Count* 3.42 K/uL (4.50-11.00)
[2024-11-05 06:57] LABS: Chloride* 98 mmol/L (96-114); Potassium* 4.3 mmol/L (3.6-5.1); Sodium* 136 mmol/L (135-149)
[2024-11-05 07:00] LABS: Anion Gap 11 mEq/L (7-15); Blood Urea Nitrogen* 15 mg/dL (7-30); Calcium* 9.1 mg/dL (8.4-10.6); Carbon Dioxide* 27 mmol/L (20-32); Creatinine* 0.8 mg/dL (0.5-1.5); Est. Creatinine Clearance* 61.51; Estimated Glomerular Filt Rate 93 ml/min; Glucose* 205 mg/dL (60-115)
[2024-11-05 07:03] LABS: C Reactive Protein* 3.5 mg/dL (0.5-1.0)
[2024-11-05 07:07] LABS: Slide Review Reflex No
[2024-11-05 07:56] LABS: Lactate* 1.8 mmol/L (0.5-1.9)
[2024-11-05 08:18] LABS: C Reactive Protein* 3.3 mg/dL (0.5-1.0)
[2024-11-05] MEDS: SOTALOL HCL 80 MG TABLET 40 MG PO ×2 (09:20→21:15)
[2024-11-05] MEDS: FUROSEMIDE 20 MG TABLET PO (09:20)
[2024-11-05] MEDS: ASPIRIN 81 MG TABLET EC PO (09:21)
[2024-11-05] MEDS: carvediloL 6.25 MG TABLET PO ×2 (09:21→21:14)
[2024-11-05] MEDS: APIXABAN 5 MG TABLET PO ×2 (09:21→21:14)
[2024-11-05] MEDS: TAMSULOSIN HCL 0.4 MG CAPSULE PO (09:21)
[2024-11-05] MEDS: METOPROLOL TARTRATE 50 MG TABLET PO ×2 (09:21→21:15)
[2024-11-05] MEDS: SODIUM CHLORIDE 0.9 % (FLUSH) 10 ML SYRINGE 5 ML IVF ×2 (09:25→21:15)
--- NOTE | 2024-11-05 09:35 | RESP.RT ---
Patient is currently on 2L NC SATing 88%. He has been stuffed up and does most of his breathing through his mouth, so an Oxymask maybe the best O2 delivery system for him. We reviewed his cardiac history and the need to have a sleep study done as he states he had one 10+ years ago and was borderline at that time and he is considerably heavier now. He has elevated CO2 levels, thus we are targeting SATs of 88-92%.
--- NOTE | 2024-11-05 11:46 | NUTR.NU ---
HANSA with diet education related to heart healthy diet. Patient admitted for respiratory failure, COPD exacerbation, and pneumonia. Medical history includes but not limited to History of COPD, coronary disease was with previous MIs, previous cardiac arrest (requiring ECMO in 1 month long hospitalization), ischemic cardiomyopathy, hypertension, hyperlipidemia, and CHF (on Lasix). Current weight 256lb 12.8oz; height 5ft 7in; BMI 40.2 kg/m2. Weight has been stable recently. Current diet is heart healthy. Meal intakes adequate since admit. ROSALIAN visited with patient whom reports not following a specific diet at home. He has received nutrition education in the past from a dietitian regarding heart health. He declined diet education and educational materials at this time. He had no questions or concerns.
--- NOTE | 2024-11-05 16:10 | PM.IMPN1 ---
Assessment and Plan Assessment and plan (1) Acute hypoxic respiratory failure: Problem comment: -Improved. oxygenation and work of breathing improved. -continue COPD exacerbation tx: Ceftriaxone 2 g, azithromycin, methylprednisone and DuoNebs Status: Acute (2) COPD exacerbation: Problem comment: As above Status: Acute (3) RLL pneumonia: Problem comment: As above Status: Acute (4) Coronary artery disease: Problem comment: He has a complex coronary artery history with acute OH in 1996 that was treated with lytics and repeat OH in 2003 treated with bare metal stenting to RCA and LAD. 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 After a long resuscitative effort, he was placed on ECMO, and underwent urgent PCI. He then developed persistent atrial fibrillation, requiring cardioversion in 2016. Due to early recurrence of AF, he underwent complex ablation (PVI, CTI, LA roof dependent AFL, and 3 different focal ATs) in August [address] Monroe. He then had recurrent atrial flutter and underwent ablation in November 2018 for LA roof dependent atrial flutter. He was maintained on low-dose sotalol thereafter. -continue telemetry and continous pulse oximetry. Status: Acute (5) History of cardiac arrest: Problem comment: History of ECMO Status: Acute (6) Atrial fibrillation: Problem comment: - s/p complex ablations 08/2017 and 11/2018 - well controlled on sotalol 40 mg BID - [id number] score 3 (HTN, CAD, age x1); on apixaban Status: Acute (7) Ischemic cardiomyopathy: Problem comment: Echo 12/14/2023 1. Normal left ventricular size, mildly increased wall thickness, normal global systolic function, calculated EF of 58 %. 2. Echo contrast was administered to enhance visualization of all left ventricular segments. On Lasix 20 mg Status: Acute Subjective Date Seen: 11/05/24 Interval history: Daily Progress Note - Hospital #: 2 CC: RLL CAP, hypoxia 24 HOUR UPDATE: Much improved from admission. c/o of fatigue and work of breathing increased from baseline. oxygen is 3L by oximask. Notable Labs, Micro, Rads, Interventions: I have reviewed vital signs and labs. all improving. Objective: smiling. sitting on the edge of the bed with oximask - able to communicate. less anxious. no accesory muscle use for respirations. Vitals: hemodynamically stable. Lungs: crackles R>L Cardiac: S1S2. Disposition/Potential discharge - home in 1-2 days. Today I spent 50minutes seeing the patient, reviewing Expanse and EPIC notes/diagnostics, discussing the care plan with our care time that includes social work, PT/OT, pharmacy, RT, retirement and documenting my impressions and plan in the medical record. Exam Const: Vital Signs, click to edit/add: Vital Signs - 24 hr 11/04/24 18:58 11/04/24 19:04 11/04/24 19:21 Temperature 98.0 F Pulse Rate Pulse Rate [Pulse Oximeter] 88 Respiratory Rate 28 H Blood Pressure Blood Pressure [Ri ght Arm] Blood Pressure [Ri ght Upper Arm] 160/86 H Pulse Oximetry 84 L 83 L Oxygen Delivery Me thod Room Air Room Air Oxygen Flow Rate 11/04/24 19:22 11/04/24 20:00 11/04/24 21:14 Temperature Pulse Rate 80 Pulse Rate [Pulse Oximeter] Respiratory Rate 18 Blood Pressure Blood Pressure [Ri ght Arm] Blood Pressure [Ri ght Upper Arm] Pulse Oximetry 98 96 92 Oxygen Delivery Me thod OxyMask OxyMask OxyMask Oxygen Flow Rate 10 5 5 11/04/24 21:15 11/04/24 21:16 11/04/24 21:17 Temperature Pulse Rate 79 Pulse Rate [Pulse Oximeter] 79 Respiratory Rate 12 20 Blood Pressure Blood Pressure [Ri ght Arm] Blood Pressure [Ri ght Upper Arm] 152/70 H Pulse Oximetry 94 92 95 Oxygen Delivery Me thod Room Air OxyMask Oxygen Flow Rate 5 11/04/24 21:17 11/04/24 21:30 11/04/24 21:45 Temperature Pulse Rate 81 84 77 Pulse Rate [Pulse Oximeter] Respiratory Rate 11 L 28 H 11 L Blood Pressure 152/70 H Blood Pressure [Ri ght Arm] Blood Pressure [Ri ght Upper Arm] Pulse Oximetry 94 91 95 Oxygen Delivery Me thod Oxygen Flow Rate 11/04/24 22:00 11/04/24 22:01 11/04/24 22:15 Temperature Pulse Rate 79 78 Pulse Rate [Pulse Oximeter] Respiratory Rate 22 11 L 30 H Blood Pressure 157/76 H Blood Pressure [Ri ght Arm] Blood Pressure [Ri ght Upper Arm] Pulse Oximetry 95 95 Oxygen Delivery Me thod OxyMask Oxygen Flow Rate 5 11/04/24 22:30 11/04/24 22:45 11/04/24 23:00 Temperature Pulse Rate 78 80 80 Pulse Rate [Pulse Oximeter] Respiratory Rate 20 28 H 24 Blood Pressure Blood Pressure [Ri ght Arm] Blood Pressure [Ri ght Upper Arm] Pulse Oximetry 95 92 95 Oxygen Delivery Me thod Oxygen Flow Rate 11/04/24 23:02 11/05/24 00:47 11/05/24 00:47 Temperature 97.8 F Pulse Rate 80 Pulse Rate [Pulse Oximeter] 87 Respiratory Rate 24 20 Blood Pressure 132/71 Blood Pressure [Ri ght Arm] 140/96 H Blood Pressure [Ri ght Upper Arm] Pulse Oximetry 96 92 92 Oxygen Delivery Me thod OxyMask OxyMask Oxygen Flow Rate 5 5 11/05/24 00:47 11/05/24 00:47 11/05/24 03:00 Temperature 97.7 F Pulse Rate 83 Pulse Rate [Pulse Oximeter] 75 Respiratory Rate 20 Blood Pressure Blood Pressure [Ri ght Arm] 130/55 L Blood Pressure [Ri ght Upper Arm] Pulse Oximetry 92 Oxygen Delivery Me thod OxyMask OxyMask Oxygen Flow Rate 5 2 11/05/24 07:00 11/05/24 07:00 11/05/24 07:00 Temperature Pulse Rate 76 Pulse Rate [Pulse Oximeter] 81 81 Respiratory Rate 22 22 Blood Pressure Blood Pressure [Ri ght Arm] 138/77 Blood Pressure [Ri ght Upper Arm] Pulse Oximetry 89 Oxygen Delivery Me thod Nasal Cannula Oxygen Flow Rate 1 11/05/24 07:00 11/05/24 07:00 11/05/24 10:51 Temperature 97.7 F 96.1 F L Pulse Rate Pulse Rate [Pulse Oximeter] 81 101 H Respiratory Rate 22 22 28 H Blood Pressure Blood Pressure [Ri ght Arm] 138/77 149/84 H Blood Pressure [Ri ght Upper Arm] Pulse Oximetry 89 89 92 Oxygen Delivery Me thod Nasal Cannula Nasal Cannula OxyMask Oxygen Flow Rate 1 1 3 11/05/24 15:00 Temperature 98.4 F Pulse Rate Pulse Rate [Pulse Oximeter] 77 Respiratory Rate 22 Blood Pressure Blood Pressure [Ri ght Arm] 130/83 Blood Pressure [[facility] Upper Arm] Pulse Oximetry 93 Oxygen Delivery Me thod OxyMask Oxygen Flow Rate Labs Labs: Laboratory Results - last 24 hr 11/04/24 11/04/24 11/04/24 19:05 19:24 19:45 WBC 6.06 RBC 4.78 Hgb 15.0 Hct 42.6 MCV 89 MCH 31 MCHC 35 RDW Coeff of Janis 11.7 Plt Count 145 Neut % (Auto) 67.1 Lymph % (Auto) 18.5 L [place] % (Auto) 12.4 H Eos % (Auto) 0.8 Baso % (Auto) 0.2 Neut # (Auto) 4.07 Lymph # (Auto) 1.10 [place] # (Auto) 0.80 Eos # (Auto) 0.05 Baso # (Auto) 0.01 Abs Immat Gran (auto) 0.06 Imm/Tot Granulo (auto) 1.0 ABG pH ABG pCO2 ABG pO2 ABG HCO3 ABG Total CO2 ABG O2 Saturation ABG Base Excess VBG pH VBG pCO2 VBG pO2 VBG HCO3 Sodium 135 Potassium 4.2 Chloride 97 Carbon Dioxide 27 Anion Gap 11 BUN 15 Creatinine 0.9 Estimated Creat Clear Estimated GFR 90 Glucose 147 H Lactate 2.0 H Calcium 9.2 Magnesium Troponin I C-Reactive Protein 3.3 H NT-Pro-B Natriuret Pep 609 SARS-CoV-2 (PCR) Negative SARS-CoV-2 Influenza Type A (PCR) Negative PCR FLU A Influenza Type B (PCR) Negative PCR FLU B RSV (PCR) Negative PCR RSV Lab Acknowledgement POC Troponin I 0.00 L 11/04/24 11/05/24 11/05/24 22:25 06:15 07:51 WBC 3.42 L RBC 4.64 Hgb 14.5 Hct 41.1 MCV 89 MCH 31 MCHC 35 RDW Coeff of Janis Plt Count 142 Neut % (Auto) Lymph % (Auto) [place] % (Auto) Eos % (Auto) Baso % (Auto) Neut # (Auto) Lymph # (Auto) [place] # (Auto) Eos # (Auto) Baso # (Auto) Abs Immat Gran (auto) Imm/Tot Granulo (auto) ABG pH 7.34 L ABG pCO2 49 H ABG pO2 53.6 L ABG HCO3 26 ABG Total CO2 24 ABG O2 Saturation 87 L ABG Base Excess -0.2 VBG pH 7.338 VBG pCO2 52 H VBG pO2 47.5 H VBG HCO3 28 Sodium 136 Potassium 4.3 Chloride 98 Carbon Dioxide 27 Anion Gap 11 BUN 15 Creatinine 0.8 Estimated Creat Clear 61.51 Estimated GFR 93 Glucose 205 H Lactate 1.8 Calcium 9.1 Magnesium 2.0 Troponin I < 0.01 C-Reactive Protein 3.5 H NT-Pro-B Natriuret Pep SARS-CoV-2 (PCR) Influenza Type A (PCR) Influenza Type B (PCR) RSV (PCR) Lab Acknowledgement Test Added POC Troponin I
[2024-11-05 16:14] LABS: Appearance Urine Clear (Clear); Bilirubin Urine Negative (Negative); Blood Urine Trace-intact (Negative); Color Urine Yellow (Yellow); Glucose Urine 3+ (Negative); Ketones Urine Trace (Negative); Leukocyte Esterase Urine Negative (Negative); Nitrite Urine Negative (Negative); Protein Urine 1+ (Negative); Urobilinogen Urine 0.2 (0.2-1.0); pH Urine 5.5 (5.0-8.5)
[2024-11-05 16:23] LABS: RBC Urine 0-2 (0-2); WBC Urine 0-2 (0-5)
[2024-11-05 16:42] LABS: Legionella pneumo Ag Urine L. pneumo Negative (Negative); S pneumo Ag Urine S. pneumo Negative (Negative)
--- NOTE | 2024-11-05 17:34 | PC.NURSE ---
Patient remains on oxy mask or NC to maintain O2 sats between 88% and 92 %.Patient encouraged to use [employer] and IS hourly. Patient ambulates Indep and is call light appropriate.
[2024-11-05] MEDS: ATORVASTATIN CALCIUM 10 MG TABLET PO (18:07)
[2024-11-05] MEDS: AZITHROMYCIN 500 MG in 0.9 % SODIUM CHLORIDE 250 ml 250 ML 255 MG IVPB (21:16)
[2024-11-05] MEDS: cefTRIAXone 2 GM in 0.9 % SODIUM CHLORIDE Mini-bag 100 ML IVPB (23:30)
[2024-11-06] VITALS (9 sets, daily range): BP systolic 120–156; BP diastolic 61–77; PULSE 68–94; RESP 16–22; TEMP 36.6–37.1; O2SAT 88–92
[2024-11-06] MEDS: IPRAT-ALBUT 0.5-2.5 MG/3 ML NEB 1 NEB IH ×3 (04:11→17:35)
[2024-11-06] MEDS: METHYLPREDNISOLONE SOD SUCC 62.5 MG/ML (125) 125 MG IVP (04:11)
--- NOTE | 2024-11-06 05:47 | PC.NURSE ---
[id number]: Patient friendly and talkative. Denies N/V/CP. Intermittent dry, coarse cough. PRN and scheduled nebs. Afebrile. Independent in room. Started shift on 2.5 Lt oxymask and decreased to 2.0 Lt to keep sats>88. SOB w/activity. Rested on and off during noc.
[2024-11-06 06:34] LABS: HCO3 VBG 27 mmol/L (21-28); PCO2 VBG 49 mmHG (40-50); pH VBG 7.354 (7.32-7.43)
[2024-11-06 06:37] LABS: Hematocrit 39.8 % (37.0-53.0); Immature Granulocytes Abs Auto 0.01 K/uL (0.00-0.30); Immature Granulocytes Pct Auto 0.1 %; Lymphocytes Percent Auto 5.7 % (20-44); Mean Corpuscular HGB Conc 35 gm/dL (32-36); Mean Corpuscular Hemoglobin 32 pg (26-34); Mean Corpuscular Volume 90 fL (80-100); Monocytes Percent Auto 3.9 % (0.0-11.0); Neutrophils Percent Auto 90.3 % (42.0-72.0); Platelet Count* 178 K/uL (140-440); RDW Coefficient of Variation % 11.9 % (11.5-15.5); Red Blood Count 4.44 m/uL (4.30-5.90)
[2024-11-06 06:38] LABS: Slide Review Reflex No
[2024-11-06 06:53] LABS: Chloride* 101 mmol/L (96-114)
[2024-11-06 06:54] LABS: Potassium* 4.2 mmol/L (3.6-5.1); Sodium* 138 mmol/L (135-149)
[2024-11-06 06:57] LABS: Anion Gap 11 mEq/L (7-15); Blood Urea Nitrogen* 21 mg/dL (7-30); Calcium* 8.9 mg/dL (8.4-10.6); Carbon Dioxide* 26 mmol/L (20-32); Creatinine* 0.7 mg/dL (0.5-1.5); Est. Creatinine Clearance* 61.51; Estimated Glomerular Filt Rate 97 ml/min; Glucose* 201 mg/dL (60-115)
[2024-11-06 07:00] LABS: C Reactive Protein* 2.1 mg/dL (0.5-1.0)
[2024-11-06] MEDS: AZITHROMYCIN 250 MG TABLET 500 MG PO (08:33)
[2024-11-06] MEDS: APIXABAN 5 MG TABLET PO ×2 (08:33→21:20)
[2024-11-06] MEDS: carvediloL 6.25 MG TABLET PO ×2 (08:33→21:21)
[2024-11-06] MEDS: SODIUM CHLORIDE 0.9 % (FLUSH) 10 ML SYRINGE 5 ML IVF ×2 (08:34→21:21)
[2024-11-06] MEDS: TAMSULOSIN HCL 0.4 MG CAPSULE PO (08:34)
[2024-11-06] MEDS: FUROSEMIDE 20 MG TABLET PO (08:34)
[2024-11-06] MEDS: LOSARTAN POTASSIUM 50 MG TABLET 25 MG PO (08:34)
[2024-11-06] MEDS: ASPIRIN 81 MG TABLET EC PO (08:34)
[2024-11-06] MEDS: METOPROLOL TARTRATE 50 MG TABLET PO ×2 (08:34→21:20)
[2024-11-06] MEDS: SOTALOL HCL 80 MG TABLET 40 MG PO ×2 (08:34→21:20)
[2024-11-06] MEDS: Fluticasone-Umeclidin-Vilanter [Trelegy Ellipta] 100-62.5-25 mcg IH (08:35)
[2024-11-06] MEDS: predniSONE 20 MG TABLET 60 MG PO (08:39)
--- NOTE | 2024-11-06 11:30 | PM.IMPN1 ---
Assessment and Plan Assessment and plan (1) Acute hypoxic respiratory failure: Problem comment: -Improved. oxygenation and work of breathing improved. -continue COPD exacerbation tx: Ceftriaxone 2 g, azithromycin, methylprednisone and DuoNebs 5/ - Azithro last dose changed to oral. continue ceftriaxone. methylprednisone changed to oral prednisone. Status: Acute (2) COPD exacerbation: Problem comment: As above Status: Acute (3) RLL pneumonia: Problem comment: As above Status: Acute (4) Coronary artery disease: Problem comment: He has a complex coronary artery history with acute SC in 1996 that was treated with lytics and repeat SC in 2003 treated with bare metal stenting to RCA and LAD. 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 After a long resuscitative effort, he was placed on ECMO, and underwent urgent PCI. He then developed persistent atrial fibrillation, requiring cardioversion in 2016. Due to early recurrence of AF, he underwent complex ablation (PVI, CTI, LA roof dependent AFL, and 3 different focal ATs) in August [address] Monroe. He then had recurrent atrial flutter and underwent ablation in November 2018 for LA roof dependent atrial flutter. He was maintained on low-dose sotalol thereafter. -continue telemetry and continous pulse oximetry. Status: Acute (5) History of cardiac arrest: Problem comment: History of ECMO Status: Acute (6) Atrial fibrillation: Problem comment: - s/p complex ablations 08/2017 and 11/2018 - well controlled on sotalol 40 mg BID - [id number] score 3 (HTN, CAD, age x1); on apixaban Status: Acute (7) Ischemic cardiomyopathy: Problem comment: Echo 12/14/2023 1. Normal left ventricular size, mildly increased wall thickness, normal global systolic function, calculated EF of 58 %. 2. Echo contrast was administered to enhance visualization of all left ventricular segments. On Lasix 20 mg Status: Acute Subjective Date Seen: 11/06/24 Interval history: Daily Progress Note - Hospital Medicine #: 3 CC: RLL CAP, hypoxia 24 HOUR UPDATE: Much improved from admission. c/o of fatigue and work of breathing increased from baseline. oxygen is 3L by oximask. Notable Labs, Micro, Rads, Interventions: I have reviewed vital signs and labs. all improving. pH normal. normal C02. CRP downtrending. blood culture neg x 2. Objective: smiling. sitting on the edge of the bed with oximask - able to communicate. less anxious. no accesory muscle use for respirations. Vitals: hemodynamically stable. Lungs: crackles R>L - improving from 11/05 Cardiac: S1S2. Disposition/Potential discharge - home in 1-2 days. Today I spent 50minutes seeing the patient, reviewing Expanse and EPIC notes/diagnostics, discussing the care plan with our care time that includes social work, PT/OT, pharmacy, RT, long term and documenting my impressions and plan in the medical record. Exam Const: Vital Signs, click to edit/add: Vital Signs - 24 hr 11/05/24 15:00 11/05/24 15:00 11/05/24 15:00 Temperature 98.4 F Pulse Rate Pulse Rate [Pulse Oximeter] 77 77 Respiratory Rate 22 22 22 Blood Pressure [Ri ght Arm] 130/83 Pulse Oximetry 93 93 Oxygen Delivery Me thod OxyMask OxyMask Oxygen Flow Rate 3 11/05/24 15:00 11/05/24 15:00 11/05/24 19:30 Temperature 98.4 F 98.5 F Pulse Rate 88 Pulse Rate [Pulse Oximeter] 77 83 Respiratory Rate 22 24 Blood Pressure [Ri ght Arm] 130/83 148/78 H Pulse Oximetry 93 92 Oxygen Delivery Me thod OxyMask OxyMask Oxygen Flow Rate 3 2.5 11/05/24 23:22 11/05/24 23:41 11/05/24 23:43 Temperature 98.3 F Pulse Rate 77 Pulse Rate [Pulse Oximeter] 79 Respiratory Rate 22 22 Blood Pressure [Ri ght Arm] 147/82 H Pulse Oximetry 92 92 Oxygen Delivery Me thod OxyMask OxyMask Oxygen Flow Rate 2.0 2.5 11/06/24 00:00 11/06/24 04:13 11/06/24 07:00 Temperature 97.9 F Pulse Rate 94 Pulse Rate [Pulse Oximeter] 76 Respiratory Rate 22 Blood Pressure [Ri ght Arm] Pulse Oximetry 92 Oxygen Delivery Me thod Oxygen Flow Rate 11/06/24 07:00 11/06/24 07:00 11/06/24 07:00 Temperature 98.7 F Pulse Rate Pulse Rate [Pulse Oximeter] 94 94 Respiratory Rate 18 18 18 Blood Pressure [Ri ght Arm] 127/61 Pulse Oximetry 88 88 Oxygen Delivery Me thod OxyMask OxyMask Oxygen Flow Rate 2 2 Labs Labs: Laboratory Results - last 24 hr 11/05/24 11/05/24 11/06/24 07:27 15:50 06:12 WBC 9.60 RBC 4.44 Hgb 14.0 Hct 39.8 MCV 90 MCH 32 MCHC 35 RDW Coeff of Janis 11.9 Plt Count 178 Neut % (Auto) 90.3 H Lymph % (Auto) 5.7 L [place] % (Auto) 3.9 Eos % (Auto) 0.0 Baso % (Auto) 0.0 Neut # (Auto) 8.70 H Lymph # (Auto) 0.50 L [place] # (Auto) 0.40 Eos # (Auto) 0.00 Baso # (Auto) 0.00 Abs Immat Gran (auto) 0.01 Imm/Tot Granulo (auto) 0.1 VBG pH 7.354 VBG pCO2 49 VBG pO2 107.0 H VBG HCO3 27 Sodium 138 Potassium 4.2 Chloride 101 Carbon Dioxide 26 Anion Gap 11 BUN 21 Creatinine 0.7 Estimated Creat Clear 61.51 Estimated GFR 97 Glucose 201 H Calcium 8.9 C-Reactive Protein 2.1 H Urine Color Yellow Urine Appearance Clear Urine pH 5.5 Ur Specific [place] 1.020 Urine Protein 1+ A Urine Glucose (UA) 3+ A Urine Ketones Trace A Urine Blood Trace-intact A Urine Nitrite Negative Urine Bilirubin Negative Urine Urobilinogen 0.2 Ur Leukocyte Esterase Negative Urine RBC 0-2 Urine WBC 0-2 Ur Squamous Epith Cells None Urine Bacteria None Urine L. pneumophilia Ag L. pneumo Negative Urine Strep pneumoniae Ag S. pneumo Negative
--- NOTE | 2024-11-06 11:35 | CRLHL7_ITS ---
For Patients: As a result of the Cures Act, medical imaging exams and procedure reports are released immediately into your electronic medical record. You may view this report before your referring provider. If you have questions, please contact your health care provider. Indication: Right lower lobe pneumonia on CT scan, still hypoxic Technique: Chest 2 views Comparison: Chest CT and x-ray 11/04/2024 Findings/Impression: Cardiovascular and mediastinum: Upper normal heart size. Lungs and pleural spaces: No pleural effusion or pneumothorax. Known right lower lobe opacities are not well seen by plain film. No significant interval change compared to the chest x-ray of 2 days prior. Bones and soft tissues: Upper abdominal surgical clips. Dictated by Dorian Mccallum MD @ 11/06/2024 12:17:28 PM (Electronically Signed)
[2024-11-06] MEDS: CARBOXYMETHYLCELLULOSE (REFRESH PLUS) TEARS 1 DROP EYE-BOTH ×2 (12:11→21:20)
--- NOTE | 2024-11-06 13:20 | PC.SOCIAL ---
Discharge planning: dairy worker met with pt for a check-in. Pt states that he doesn't have any concerns about returning home after his hospital stay and has a very supportive and loving family that will be helping him, if needed. Pt lives with his . Social work to follow-up as needed.
--- NOTE | 2024-11-06 14:50 | RESP.RT ---
The patient was seen today by respiratory therapy and remains on an Oxymask. Per discussion with the attending provider, the patient?s respiratory status has shown improvement. The patient continues to use the Aerobika device independently. Respiratory therapy will continue to follow.
[2024-11-06] MEDS: ATORVASTATIN CALCIUM 10 MG TABLET PO (17:35)
[2024-11-06] MEDS: TRAZODONE HCL 50 MG TABLET 100 MG PO (17:37)
--- NOTE | 2024-11-06 18:56 | PC.NURSE ---
End of Shift ([id number]): Patient pleasant and cooperative, A&O. VSS, afebrile. Pt started the shift on 2.0L O2 via Oxymask, pt ended the shift on 1.5L O2 via oxymask to maintained SpO2 above 88%. Pt denies pain this shift. He reports his eyes feeling itchy and as if they had sand in them, notified, gave PRN eye drops, see MAR. Tolerating heart healthy diet. Independent in room. ?
[2024-11-06] MEDS: cefTRIAXone 2 GM in 0.9 % SODIUM CHLORIDE Mini-bag 100 ML IVPB (23:27)
[2024-11-07] VITALS (9 sets, daily range): BP systolic 111–165; BP diastolic 47–96; PULSE 58–75; RESP 20–22; TEMP 36.2–36.8; O2SAT 91–94
[2024-11-07] MEDS: IPRAT-ALBUT 0.5-2.5 MG/3 ML NEB 1 NEB IH ×4 (00:21→17:47)
[2024-11-07 06:08] LABS: HCO3 VBG 32 mmol/L (21-28); PCO2 VBG 55 mmHG (40-50); PO2 VBG 55.4 mmHG (25-47); pH VBG 7.374 (7.32-7.43)
[2024-11-07] MEDS: CARBOXYMETHYLCELLULOSE (REFRESH PLUS) TEARS 1 DROP EYE-BOTH ×2 (06:24→21:05)
[2024-11-07 06:25] LABS: Chloride* 101 mmol/L (96-114); Sodium* 139 mmol/L (135-149)
[2024-11-07 06:26] LABS: Potassium* 4.3 mmol/L (3.6-5.1)
[2024-11-07 06:29] LABS: Anion Gap 6 mEq/L (7-15); Blood Urea Nitrogen* 22 mg/dL (7-30); Calcium* 8.8 mg/dL (8.4-10.6); Carbon Dioxide* 32 mmol/L (20-32); Creatinine* 0.7 mg/dL (0.5-1.5); Est. Creatinine Clearance* 61.51; Estimated Glomerular Filt Rate 97 ml/min; Glucose* 121 mg/dL (60-115)
--- NOTE | 2024-11-07 07:21 | PC.NURSE ---
Shift note ([id number]): Patient pleasant, alert and oriented. Attempted to wean from oxygen however patient reported feeling SOB after ambulating to and from the bathroom. On room air O2 sats were in the upper 70?s with exertion and 83-88% at rest. Oxygen was applied at that time via oxymask at 0.5-2LPM to keep sats between 88-92%. Pt denied pain.?
--- NOTE | 2024-11-07 07:58 | P.IMPN_ITS ---
Assessment and Plan Assessment and plan (1) Acute hypoxic respiratory failure: Problem comment: -Improved. oxygenation and work of breathing improved. -continue COPD exacerbation tx: Ceftriaxone 2 g, azithromycin, methylprednisone and DuoNebs 11/06 - Azithro last dose changed to oral. continue ceftriaxone. methylprednisone changed to oral prednisone. 11/07 - recommended more walking, adding mucinex and saline nebs. continue aerobika. changing rocephin to levaquin. Status: Acute (2) COPD exacerbation: Problem comment: As above Status: Acute (3) RLL pneumonia: Problem comment: As above Status: Acute (4) Coronary artery disease: Problem comment: He has a complex coronary artery history with acute HI in 1996 that was treated with lytics and repeat HI in 2003 treated with bare metal stenting to RCA and LAD. 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 After a long resuscitative effort, he was placed on ECMO, and underwent urgent PCI. He then developed persistent atrial fibrillation, requiring cardioversion in 2016. Due to early recurrence of AF, he underwent complex ablation (PVI, CTI, LA roof dependent AFL, and 3 different focal ATs) in August [address] Monroe. He then had recurrent atrial flutter and underwent ablation in November 2018 for LA roof dependent atrial flutter. He was maintained on low-dose sotalol thereafter. -continue telemetry and continous pulse oximetry. Status: Acute (5) History of cardiac arrest: Problem comment: History of ECMO Status: Acute (6) Atrial fibrillation: Problem comment: - Has been in NSR most of the stay - s/p complex ablations 08/2017 and 11/2018 - well controlled on sotalol 40 mg BID - [id number] score 3 (HTN, CAD, age x1); on apixaban Status: Acute (7) Ischemic cardiomyopathy: Problem comment: Echo 12/14/2023 1. Normal left ventricular size, mildly increased wall thickness, normal global systolic function, calculated EF of 58 %. 2. Echo contrast was administered to enhance visualization of all left ventr icular segments. On Lasix 20 mg Status: Acute Subjective Date Seen: 11/07/24 Interval history: Daily Progress Note - Hospital Medicine #: 4 CC: RLL CAP, hypoxia 24 HOUR UPDATE: Shift note ([id number]): Patient pleasant, alert and oriented. Attempted to wean from oxygen however patient reported feeling SOB after ambulating to and from the bathroom. On room air O2 sats were in the upper 70?s with exertion and 83- 88% at rest. Oxygen was applied at that time via oxymask at 0.5-2LPM to keep sats between 88-92%. Pt denied pain.? Continues to improve. on NC and no longer oximask. still has increased wob with exertion. Notable Labs, Micro, Rads, Interventions: I have reviewed vital signs and labs. all improving. pH normal. CO2 a little elevated today.. CRP downtrending. blood culture neg x 2. Objective: smiling. sitting on the edge of the bed with oximask - able to communicate. less anxious. no accesory muscle use for respirations. Vitals: hemodynamically stable. Lungs: crackles R>L - improving from 55 Cardiac: S1S2. Disposition/Potential discharge - home in 1-2 days. Today I spent 50minutes seeing the patient, reviewing Expanse and EPIC notes/diagnostics, discussing the care plan with our care time that includes social work, PT/OT, pharmacy, RT, senior care and documenting my impressions and plan in the medical record. Exam Const: Vital Signs, click to edit/add: Vital Signs - 24 hr 11/06/24 11:00 11/06/24 14:46 11/06/24 15:00 Temperature 98.2 F 97.9 F Pulse Rate Pulse Rate [Pulse Oximeter] 83 81 Respiratory Rate 18 16 18 Blood Pressure [Ri ght Arm] 156/77 H 120/62 Pulse Oximetry 88 88 Oxygen Delivery Me thod OxyMask OxyMask OxyMask Oxygen Flow Rate 1.5 1.5 1.5 Fraction of Inspir ed Oxygen 90 11/06/24 15:00 11/06/24 15:00 11/06/24 15:00 Temperature Pulse Rate 77 Pulse Rate [Pulse Oximeter] 81 Respiratory Rate 18 18 Blood Pressure [Ri ght Arm] Pulse Oximetry 88 Oxygen Delivery Me thod OxyMask Oxygen Flow Rate 1.5 Fraction of Inspir ed Oxygen 11/06/24 19:00 11/06/24 23:00 11/06/24 23:00 Temperature 98.3 F 98.4 F Pulse Rate Pulse Rate [Pulse Oximeter] 84 68 Respiratory Rate 18 18 [facility] 130/63 120/61 Pulse Oximetry 92 90 88 Oxygen Delivery Me thod OxyMask Room Air Room Air Oxygen Flow Rate 1 Fraction of Inspir ed Oxygen 90 90 11/06/24 23:45 11/07/24 01:30 11/07/24 03:40 Temperature 98.3 F Pulse Rate 64 Pulse Rate [Pulse Oximeter] 69 Respiratory Rate 20 Blood Pressure [[facility] Arm] 111/47 L Pulse Oximetry 90 91 Oxygen Delivery Me thod Nasal Cannula Oxygen Flow Rate 1.5 Fraction of Inspir ed Oxygen Labs Labs: Laboratory Results - last 24 hr 11/06/24 11/07/24 06:12 05:50 VBG pH 7.374 VBG pCO2 55 H VBG pO2 55.4 H VBG HCO3 32 H Sodium 139 Potassium 4.3 Chloride 101 Carbon Dioxide 32 Anion Gap 6 L BUN 22 Creatinine 0.7 Estimated Creat Clear 61.51 Estimated GFR 97 Glucose 121 H Calcium 8.8 C-Reactive Protein 2.1 H
[2024-11-07] MEDS: predniSONE 20 MG TABLET 60 MG PO (08:00)
[2024-11-07] MEDS: ASPIRIN 81 MG TABLET EC PO (09:23)
[2024-11-07] MEDS: TAMSULOSIN HCL 0.4 MG CAPSULE PO (09:23)
[2024-11-07] MEDS: METOPROLOL TARTRATE 50 MG TABLET PO ×2 (09:23→20:57)
[2024-11-07] MEDS: carvediloL 6.25 MG TABLET PO ×2 (09:23→20:57)
[2024-11-07] MEDS: APIXABAN 5 MG TABLET PO ×2 (09:23→20:57)
[2024-11-07] MEDS: SOTALOL HCL 80 MG TABLET 40 MG PO ×2 (09:23→20:58)
[2024-11-07] MEDS: FUROSEMIDE 20 MG TABLET PO (09:23)
[2024-11-07] MEDS: LOSARTAN POTASSIUM 50 MG TABLET 25 MG PO (09:23)
[2024-11-07] MEDS: SODIUM CHLORIDE 0.9 % (FLUSH) 10 ML SYRINGE 5 ML IVF ×2 (09:31→21:09)
[2024-11-07] MEDS: Fluticasone-Umeclidin-Vilanter [Trelegy Ellipta] 100-62.5-25 mcg IH (09:31)
--- NOTE | 2024-11-07 10:15 | RESP.RT ---
Pt seen and worked Aerobika, increased setting to 5, Has a very strong congested cough during treatment. BBS with Rhonchi in RLL. Possible plugging, Provider has ordered some saline nebs. instructed Pt to do aerobika during commercials, for apporximatley 20 minutes per hour. Still on low Flow NC with SPO2 90-94. At this time he does desaturate on RA. Encourage ambulation and sitting in chair.
[2024-11-07] MEDS: guaiFENesin 600 MG TAB.ER.12H 1200 MG PO ×2 (12:02→20:57)
[2024-11-07] MEDS: ATORVASTATIN CALCIUM 10 MG TABLET PO (17:47)
--- NOTE | 2024-11-07 18:30 | PC.NURSE ---
End of shift: Patient alert/oriented x4. VSS. on 1 L NC. Ambulating hallways and tolerating activity. Patient reports SOB with activity and still requiring 1 L O2. Patient requested meds at 2030 and to non-admin the 2300 Neb. Patient reports not getting much sleep at NOC. aware and okayed restful nights as long as cont. pulse ox in use. Patient tolerating a reg. diet and reports voiding well.
[2024-11-07] MEDS: TRAZODONE HCL 50 MG TABLET PO (21:02)
[2024-11-07] MEDS: CEFPODOXIME PROXETIL 200 MG TABLET PO (21:08)
[2024-11-08 01:40] VITALS: O2SAT 93
[2024-11-08 03:00] VITALS: O2SAT 93
[2024-11-08] MEDS: IPRAT-ALBUT 0.5-2.5 MG/3 ML NEB 1 NEB IH ×2 (05:10→11:58)
[2024-11-08 06:28] LABS: HCO3 VBG 36 mmol/L (21-28); PO2 VBG < 30.1 mmHG (25-47); pH VBG 7.379 (7.32-7.43)
[2024-11-08 06:36] LABS: Eosinophils Absolute Auto 0.02 K/uL (0.00-0.50); Eosinophils Percent Auto 0.3 % (0.0-7.0); Hematocrit 41.2 % (37.0-53.0); Hemoglobin* 14.2 gm/dL (13.5-17.5); Immature Granulocytes Abs Auto 0.09 K/uL (0.00-0.30); Immature Granulocytes Pct Auto 1.3 %; Lymphocytes Absolute Auto 1.68 K/uL (0.90-2.90); Lymphocytes Percent Auto 24.4 % (20-44); Mean Corpuscular HGB Conc 35 gm/dL (32-36); Mean Corpuscular Hemoglobin 31 pg (26-34); Mean Corpuscular Volume 91 fL (80-100); Monocytes Percent Auto 7.4 % (0.0-11.0); Neutrophils Absolute Auto 4.59 K/uL (1.7-7.0); Neutrophils Percent Auto 66.6 % (42.0-72.0); Platelet Count* 196 K/uL (140-440); RDW Coefficient of Variation % 11.9 % (11.5-15.5); Red Blood Count 4.54 m/uL (4.30-5.90); White Blood Count* 6.89 K/uL (4.50-11.00)
[2024-11-08 06:38] LABS: PCO2 VBG 62 mmHG (40-50)
[2024-11-08 06:44] LABS: Slide Review Reflex No
[2024-11-08 06:46] LABS: Chloride* 100 mmol/L (96-114); Potassium* 4.1 mmol/L (3.6-5.1); Sodium* 142 mmol/L (135-149)
[2024-11-08 06:49] LABS: Anion Gap 5 mEq/L (7-15); Blood Urea Nitrogen* 20 mg/dL (7-30); Carbon Dioxide* 37 mmol/L (20-32); Creatinine* 0.8 mg/dL (0.5-1.5); Est. Creatinine Clearance* 61.51; Estimated Glomerular Filt Rate 93 ml/min
[2024-11-08 06:50] LABS: Calcium* 8.9 mg/dL (8.4-10.6); Glucose* 96 mg/dL (60-115)
[2024-11-08 07:00] VITALS: BP 148/117; PULSE 71; RESP 18; O2SAT 90
--- NOTE | 2024-11-08 07:40 | CRLHL7_ITS ---
For Patients: As a result of the Century Cures Act, medical imaging exams and procedure reports are released immediately into your electronic medical record. You may view this report before your referring provider. If you have questions, please contact your health care provider. INDICATION: Hypoxia, right lower lobe community-acquired pneumonia. COMPARISON: 11/04/[address], 11/06/2024 radiographs TECHNIQUE: CT chest with intravenous contrast. Multiplanar axial, coronal, and sagittal reformats are included. MIP images to improve detection of pulmonary nodules are included. Intravenous contrast: 75 mL Isovue 370 FINDINGS: Airway: Normal tracheobronchial tree. Resolved bronchial wall thickening. Lungs: Resolved peribronchial ground-glass opacities. No nodules or masses. No consolidations. Normal appearance of the pulmonary interstitium. Pleura: No pleural effusion. No pneumothorax. Lymph nodes: No thoracic adenopathy. Mediastinum: No pneumomediastinum. No mass. Heart and great vessels: No pericardial effusion. Normal cardiac chamber size. Heavily calcified coronary atherosclerotic plaques. No aortic aneurysm. Normal caliber main pulmonary artery. No central pulmonary embolism. Chest wall: Normal. No masses. Upper abdomen: Normal. Bones: No fractures. No focal bone lesions. IMPRESSION: Lungs clear. No acute findings. Please note that all CT scans at this facility use dose modulation, iterative reconstruction, and/or weight-based dosing when appropriate to reduce radiation dose to as low as reasonably achievable. Dictated by Marisol Hoff MD @ 11/08/2024 9:37:34 AM (Electronically Signed)
--- NOTE | 2024-11-08 07:53 | PC.NURSE ---
Shift note ([id number]): Patient pleasant, alert and oriented. Requested rested night vitals and refused 2300 neb. Pt sats at 94% on 0.5 LPM O2. Patient weaned off O2 at 0140 and maintained saturations above 88% while at rest throughout the night. Per patient O2 sats 84-85% on room air when he returned from walking in the hallway. Pt denied feeling SOB but stated, ?I felt exerted.? O2 saturation quickly returned above 88% at rest after ambulating. Pt denied any discomfort.?
[2024-11-08 07:57] LABS: Lactate* 1.3 mmol/L (0.5-1.9)
[2024-11-08 08:16] LABS: C Reactive Protein* 0.8 mg/dL (0.5-1.0)
[2024-11-08] MEDS: predniSONE 20 MG TABLET 60 MG PO (08:41)
[2024-11-08] MEDS: Fluticasone-Umeclidin-Vilanter [Trelegy Ellipta] 100-62.5-25 mcg IH (08:42)
[2024-11-08] MEDS: ASPIRIN 81 MG TABLET EC PO (08:42)
[2024-11-08] MEDS: carvediloL 6.25 MG TABLET PO (08:42)
[2024-11-08] MEDS: CEFPODOXIME PROXETIL 200 MG TABLET PO (08:42)
[2024-11-08] MEDS: FUROSEMIDE 20 MG TABLET PO (08:42)
[2024-11-08] MEDS: APIXABAN 5 MG TABLET PO (08:42)
[2024-11-08] MEDS: SOTALOL HCL 80 MG TABLET 40 MG PO (08:43)
[2024-11-08] MEDS: LOSARTAN POTASSIUM 50 MG TABLET 25 MG PO (08:43)
[2024-11-08] MEDS: METOPROLOL TARTRATE 50 MG TABLET PO (08:43)
[2024-11-08] MEDS: guaiFENesin 600 MG TAB.ER.12H 1200 MG PO (08:43)
[2024-11-08] MEDS: TAMSULOSIN HCL 0.4 MG CAPSULE PO (08:44)
[2024-11-08 09:13] VITALS: PULSE 78
[2024-11-08 11:00] VITALS: BP 122/67; PULSE 90; RESP 18; O2SAT 91
[2024-11-08 11:03] LABS: ABG PCO2 49 mmHG (35-45); Base Excess ABG 7.3 mmol/L (-3.0-3.0); HCO3 ABG 33 mmol/L (21-28); Oxygen Saturation ABG 94 % (92-100); PO2 ABG 62.2 mmHG (80-105); TCO2 ABG 29 mmol/l (21-30); pH ABG 7.44 (7.35-7.45)
--- NOTE | 2024-11-08 13:04 | PM.IMPN1 ---
Subjective Interval history: [place] Admission for inhospital arrest and CCU with [facility] 03/21/2014 - 04/10/2014 Vascular Procedures: 2003 - PCI with BENJAMIN to left circumflex, LAD, RCA 2013 - ECMO 08/05 vfib arrest 2013 - ligation of lymphatics, right groin wound 2014 - exploration of right groin, removal of foreign body 2016 - PCI with BENJAMIN to RCA and left circumflex 2017 - PCI with BENJAMIN to LAD Dorian Spencer is a pleasant 74 y.o. year old male with a history of HTN, HLD, CAD s/p multiple PCIs, ischemic cardiomyopathy, HFrEF, h/o in-hospital cardiac arrest at the time of parotid surgery in 2013 requiring emergent coronary intervention and ECMO, COPD, lymphedema, PVCs, and recurrent atrial arrhythmias s/p ablation 08/2017 and 11/2018 He has a complex coronary artery history with acute LA in 1996 that was treated with lytics and repeat LA in 2003 treated with bare metal stenting to RCA and LAD. 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 After a long resuscitative effort, he was placed on ECMO, and underwent urgent PCI. ? He then developed persistent atrial fibrillation, requiring cardioversion in 2016. Due to early recurrence of AF, he underwent complex ablation (PVI, CTI, LA roof dependent AFL, and 3 different focal ATs) in August [address] Monroe. He then had recurrent atrial flutter and underwent ablation in November 2018 for LA roof dependent atrial flutter. He was maintained on low-dose sotalol thereafter. ? He presents today (MAY 2024) for annual follow-up and reports that he has been doing well from a rhythm standpoint and has not had any recurrent atrial arrhythmias. He continues to tolerate low-dose sotalol. In the last year, he notes only 1 day of palpitations, which she felt were similar to his PVCs. This spontaneously resolved and he has not had any recurrence. He has occasional positional lightheadedness, but states that this is rather infrequent and not overly bothersome. He continues to have exertional shortness of breath but states that it is due to his COPD and is currently well-managed on his current regimen. He denies any chest pain. His activity is significantly limited by lymphedema in his legs. He underwent a stress test that was ordered by Dr. Melendrez in January 2024 which revealed a transmural infarct but no significant ischemia. Follow-up with Dr. Melendrez was recommended but not completed. Exam Const: Vital Signs, click to edit/add: Vital Signs - 24 hr 11/07/24 15:00 11/07/24 15:00 11/07/24 15:00 Temperature 97.3 F L Pulse Rate Pulse Rate [Pulse Oximeter] 74 74 Respiratory Rate 20 20 20 Blood Pressure [Ri ght Arm] 126/71 Pulse Oximetry 91 91 Oxygen Delivery Me thod Nasal Cannula Nasal Cannula Oxygen Flow Rate 1 1 Fraction of Inspir ed Oxygen 90 90 11/07/24 15:00 11/07/24 19:00 11/07/24 23:00 Temperature 97.9 F Pulse Rate 75 58 L Pulse Rate [Pulse Oximeter] 72 Respiratory Rate 20 Blood Pressure [Ri ght Arm] Pulse Oximetry 91 Oxygen Delivery Me thod Nasal Cannula Oxygen Flow Rate 0.5 Fraction of Inspir ed Oxygen 11/07/24 23:50 11/07/24 23:50 11/07/24 23:53 Temperature 97.2 F L Pulse Rate Pulse Rate [Pulse Oximeter] 64 Respiratory Rate 22 Blood Pressure [Ri ght Arm] 147/79 H Pulse Oximetry 92 92 92 Oxygen Delivery Me thod OxyMask OxyMask Oxygen Flow Rate 0.5 0.5 Fraction of Inspir ed Oxygen 11/08/24 01:40 11/08/24 03:00 11/08/24 07:00 Temperature Pulse Rate Pulse Rate [Pulse Oximeter] 71 Respiratory Rate 18 Blood Pressure [Ri ght Arm] Pulse Oximetry 93 93 Oxygen Delivery Me thod OxyMask Room Air Oxygen Flow Rate 0.5 Fraction of Inspir ed Oxygen 11/08/24 07:00 11/08/24 07:00 11/08/24 09:13 Temperature Pulse Rate 78 Pulse Rate [Pulse Oximeter] 71 Respiratory Rate 18 18 Blood Pressure [Ri ght Arm] 148/117 H Pulse Oximetry 90 90 Oxygen Delivery Me thod Room Air Room Air Oxygen Flow Rate Fraction of Inspir ed Oxygen 11/08/24 11:00 11/08/24 11:24 Temperature Pulse Rate Pulse Rate [Pulse Oximeter] 90 Respiratory Rate 18 Blood Pressure [Ri ght Arm] 122/67 Pulse Oximetry 91 Oxygen Delivery Me thod Room Air Room Air Oxygen Flow Rate Fraction of Inspir ed Oxygen 0.21 Labs Labs: Laboratory Results - last 24 hr 11/08/24 11/08/24 11/08/24 06:17 07:51 10:50 WBC 6.89 RBC 4.54 Hgb 14.2 Hct 41.2 MCV 91 MCH 31 MCHC 35 RDW Coeff of Janis 11.9 Plt Count 196 Neut % (Auto) 66.6 Lymph % (Auto) 24.4 [place] % (Auto) 7.4 Eos % (Auto) 0.3 Baso % (Auto) 0.0 Neut # (Auto) 4.59 Lymph # (Auto) 1.68 [place] # (Auto) 0.50 Eos # (Auto) 0.02 Baso # (Auto) 0.00 Abs Immat Gran (auto) 0.09 Imm/Tot Granulo (auto) 1.3 ABG pH 7.44 ABG pCO2 49 H ABG pO2 62.2 L ABG HCO3 33 H ABG Total CO2 29 ABG O2 Saturation 94 ABG Base Excess 7.3 H VBG pH 7.379 VBG pCO2 62 H* VBG pO2 < 30.1 VBG HCO3 36 H Sodium 142 Potassium 4.1 Chloride 100 Carbon Dioxide 37 H Anion Gap 5 L BUN 20 Creatinine 0.8 Estimated Creat Clear 61.51 Estimated GFR 93 Glucose 96 Lactate 1.3 Calcium 8.9 C-Reactive Protein 0.8 Lab Acknowledgement Test Added
--- NOTE | 2024-11-08 14:01 | P.DS_ITS ---
DS: Providers Provider Date Seen: 11/08/24 Date of admission: 11/04/24 23:22 Primary care physician: Licha Henderson MD Admitting Clinician: Raina Coy MD Consults: 11/04/24 23:26 Consult to Respiratory Therapy [CONS] Routine Comment: Reason(s) for RT Consult:: Consult Attending Physician on discharge: Lisa Gunn MD [facility] Date of Discharge: 11/08/24 DS: Diagnosis Discharge Diagnosis (1) Acute hypoxic respiratory failure: Status: Acute Problem details: -RLL pneumonia, COPD excerbation, untreated KRISTI. -Improved. oxygenation and work of breathing improved. -still hypercapnic and hypoxic off oxygen - pt is resistant to sleep study and wearing CPAP or wearing NC oxygen really at all. (2) RLL pneumonia: Status: Acute Problem details: RLL infilitrate resolved with 11/08 CT rocephin --> cefpodoxime. IV to oral steroids. [employer] inhaler and nebs. (3) COPD exacerbation: Status: Acute Problem details: As above (4) Chronic respiratory failure with hypoxia and hypercapnia: Status: Acute Problem details: He feels much better. Most of the time he can keep his sats>88% on RA. Tires easily. ABG on 11/08 off oxygen: PA ratio is 296 (PaO2 62 and PCO2 49) ABG on 11/08 with 1.5L: PA ratio is (PaO2 65 and PCO2 51) Home oxygen order approved and Pt is to use as directed Recommend a pulmonology and sleep medicine outpatient consults (5) Ischemic cardiomyopathy: Status: Acute Problem details: Pt has preserved EF - question if he has any history of heart failure after stabilization from his acute cardiac event in 2009. He is not on GDMT (SGLT2, MRAs and ARNI) - I'd have him f/u with cards to ask the question of necessity for these. Echo 12/14/2023 1. Normal left ventricular size, mildly increased wall thickness, normal global systolic function, calculated EF of 58 %. 2. Echo contrast was administered to enhance visualization of all left ventricular segments. (6) Coronary artery disease: Status: Acute Problem details: He has a complex coronary artery history with acute CA in 1996 that was treated with lytics and repeat CA in 2004 treated with bare metal stenting to RCA and LAD. In 2013, during surgery at the [facility] in [place] for a benign par otid tumor, he developed ventricular tachycardia/ventricular fibrillation, and suffered a prolonged arrest. After a long resuscitative effort, he was placed on ECMO, and underwent urgent PCI. He then developed persistent atrial fibrillation, requiring cardioversion in 2016. Due to early recurrence of AF, he underwent complex ablation (PVI, CTI, LA roof dependent AFL, and 3 different focal ATs) in August [address] Monroe. He then had recurrent atrial flutter and underwent ablation in November 2018 for LA roof dependent atrial flutter. He was maintained on low-dose sotalol thereafter. -continue telemetry and continous pulse oximetry. (7) Atrial fibrillation: Status: Acute Problem details: - Has been in NSR most of the stay - s/p complex ablations 08/2017 and 11/2018 - well controlled on sotalol 40 mg BID - [id number] score 3 (HTN, CAD, age x1); on apixaban (8) History of cardiac arrest: Status: Acute Problem details: History of ECMO 2013 during a routine parotid gland (benign) surgery at [place]. DS: Summary Hospital Course Hospital Course: FINAL DIAGNOSIS/FOLLOW UP ISSUES: -establish new PCP -chronic hypercapnia, chronic hypoxia: The degree of hypoxia off of oxygen on his ABG was concerning. Patient does not feel air hunger at this level. His pH was normal. His commitment and insight the importance of oxygen suppl ementation and CPAP if needed is challenging. Discharged with home oxygen. Needs a pulmonology referral and sleep medicine referral. Likely multifactorial disease with a history of coronary artery disease, COPD, ischemic cardiomyopathy, untreated sleep apnea, chronic PAF and recent right lower lobe infiltrate. BRIEF HOSPITAL COURSE: Patient was admitted for 5 days. Synopsis of acute inpatient issues are outlined above. Chronic medical conditions with notable findings outlined above. He presented with significant hypoxia requiring 5 L of nasal cannula oxygen secondary to pneumonia, mild CHF, moderately severe COPD. His air hunger was intense. He was using accessory muscles to maintain low 80s. He stabilized quickly with IV diuresis, steroids, nebulizers, antibiotics and oxygen support. He was weaned over several days down to 1 L. his follow-up CT was very reassuring. However his ABG done on the day of discharge showed a surprising level of hypoxemia. He also has a mild to moderate degree of hypercapnia. We highly recommended home oxygen therapy, sleep study and a pulmonology referral. His insight and degree of commitment is moderately poor despite counseling. We agreed upon at least using oxygen by nasal cannula at night and that he would at least go visit with a printing equipment mechanic apprentice and sleep medicine specialist. His degree, if any, of heart failure is questionable. He is not on goal- directed medical therapy. We did not update his echo. His BNP was 600. Neither chest CT described pulmonary edema. The last was done in the summer of 2023 but he had preserved LVEF. He follows with [facility]. His medication regimen is not GDMT as 1 would expect for preserved EF heart failure. Thus I did not start him on an SGLT1i, MRA, or ARNI. He is on 2 beta blockers which is correct and a little unclear to me but he feels this works the best for his blood pressure and pulse. He has a complicated P AF history. He is maintained on Eliquis and sotalol. Review of [facility] notes: [place] Admission for inhospital arrest and CCU with Ech[facility] 03/21/2014 - 04/10/2014 Vascular Procedures: 2003 - PCI with BENJAMIN to left circumflex, LAD, RCA 2013 - ECMO 08/05 vfib arrest 2013 - ligation of lymphatics, right groin wound 2014 - exploration of right groin, removal of foreign body 2016 - PCI with BENJAMIN to RCA and left circumflex 2018 - PCI with BENJAMIN to LAD Dorian Spencer is a pleasant 74 y.o. year old male with a history of HTN, HLD, CAD s/p multiple PCIs, ischemic cardiomyopathy, HFrEF, h/o in-hospital cardiac arrest at the time of parotid surgery in 2013 requiring emergent coronary intervention and ECMO, COPD, lymphedema, PVCs, and recurrent atrial arrhythmias s/p ablation 08/2017 and 11/2018 He has a complex coronary artery history with acute CA in 1996 that was treated with lytics and repeat CA in 2003 treated with bare metal stenting to RCA and LAD. In 2013, during surgery at the [facility] in [place] for a benign parotid tumor, he developed ventricular tachycardia/ventricular fibrillation, and suffered a prolonged arrest. After a long resuscitative effort, he was placed on ECMO, and underwent urgent PCI. ? He then developed persistent atrial fibrillation, requiring cardioversion in 2016. Due to early recurrence of AF, he underwent complex ablation (PVI, CTI, LA roof dependent AFL, and 3 different focal ATs) in August [address] Monroe. He then had recurrent atrial flutter and underwent ablation in November 2018 for LA roof dependent atrial flutter. He was maintained on low-dose sotalol thereafter. ? He presents today (MAY 2024) for annual follow-up and reports that he has been doing well from a rhythm standpoint and has not had any recurrent atrial arrhythmias. He continues to tolerate low-dose sotalol. In the last year, he n otes only 1 day of palpitations, which she felt were similar to his PVCs. This spontaneously resolved and he has not had any recurrence. He has occasional positional lightheadedness, but states that this is rather infrequent and not overly bothersome. He continues to have exertional shortness of breath but states that it is due to his COPD and is currently well-managed on his current regimen. He denies any chest pain. His activity is significantly limited by lymphedema in his legs. He underwent a stress test that was ordered by Dr. Melendrez in January 2024 which revealed a transmural infarct but no significant ischemia. Follow-up with Dr. Melendrez was recommended but not completed. DISCHARGE MEDICATIONS: See Reconciled list - SIGNIFICANT CHANGES: prednisone taper 5 more days of abx home oxygen Specific instructions to the patient and follow-up are outlined below. REVIEW OF SYSTEMS No new chest pain or dyspnea Pain controlled No voiding difficulties Tolerating diet challenge PHYSICAL EXAM: CONSTITUTIONAL: Conversive, good historian. A/O. Knows setting and context. GENERAL: Well-developed and above ideal body weight, in no respiratory distress. VITAL SIGNS: see record. HEENT: Sclerae are anicteric. No petechiae. CARDIAC: rhythm is regular. There is no S3 or rub. No harsh murmurs. Extremities show 1-2+ edema with symmetrical pulses. PULM: good air entry with no wheeze. NEURO: Speech is fluent. A brief neurologic exam is negative. SKIN: No rashes, petechiae, concerning changes PSYCHIATRIC: Euthymic. DISPOSITION: Home with /family Time spent on discharge 37 minutes. Status at Discharge Overall status at discharge: patient is progressing back to baseline Time Spent with Patient Time attestation: Total time spent providing and/or coordinating discharge services: Time spent: Greater than 30 minutes Exam Const: Vital Signs, click to edit/add: Vital Signs - 24 hr 11/07/24 15:00 11/07/24 15:00 11/07/24 15:00 Temperature 97.3 F L Pulse Rate Pulse Rate [Pulse Oximeter] 74 74 Respiratory Rate 20 20 20 Blood Pressure [Ri ght Arm] 126/71 Pulse Oximetry 91 91 Oxygen Delivery Me thod Nasal Cannula Nasal Cannula Oxygen Flow Rate 1 1 Fraction of Inspir ed Oxygen 90 90 11/07/24 15:00 11/07/24 19:00 11/07/24 23:00 Temperature 97.9 F Pulse Rate 75 58 L Pulse Rate [Pulse Oximeter] 72 Respiratory Rate 20 Blood Pressure [Ri ght Arm] Pulse Oximetry 91 Oxygen Delivery Me thod Nasal Cannula Oxygen Flow Rate 0.5 Fraction of Inspir ed Oxygen 11/07/24 23:50 11/07/24 23:50 11/07/24 23:53 Temperature 97.2 F L Pulse Rate Pulse Rate [Pulse Oximeter] 64 Respiratory Rate 22 Blood Pressure [Ri ght Arm] 147/79 H Pulse Oximetry 92 92 92 Oxygen Delivery Me thod OxyMask OxyMask Oxygen Flow Rate 0.5 0.5 Fraction of Inspir ed Oxygen 11/08/24 01:40 11/08/24 03:00 11/08/24 07:00 Temperature Pulse Rate Pulse Rate [Pulse Oximeter] 71 Respiratory Rate 18 Blood Pressure [Ri ght Arm] Pulse Oximetry 93 93 Oxygen Delivery Me thod OxyMask Room Air Oxygen Flow Rate 0.5 Fraction of Inspir ed Oxygen 11/08/24 07:00 11/08/24 07:00 11/08/24 09:13 Temperature Pulse Rate 78 Pulse Rate [Pulse Oximeter] 71 Respiratory Rate 18 18 Blood Pressure [Ri ght Arm] 148/117 H Pulse Oximetry 90 90 Oxygen Delivery Me thod Room Air Room Air Oxygen Flow Rate Fraction of Inspir ed Oxygen 11/08/24 11:00 11/08/24 11:24 Temperature Pulse Rate Pulse Rate [Pulse Oximeter] 90 Respiratory Rate 18 Blood Pressure [Ri ght Arm] 122/67 Pulse Oximetry 91 Oxygen Delivery Me thod Room Air Room Air Oxygen Flow Rate Fraction of Inspir ed Oxygen 0.21 DS: Data Data Completed and Pending Labs on day of discharge: Labs from last 24 hours 11/08/24 11/08/24 11/08/24 10:50 07:51 06:17 WBC 6.89 RBC 4.54 Hgb 14.2 Hct 41.2 MCV 91 MCH 31 MCHC 35 RDW Coeff of Janis 11.9 Plt Count 196 Neut % (Auto) 66.6 Lymph % (Auto) 24.4 [place] % (Auto) 7.4 Eos % (Auto) 0.3 Baso % (Auto) 0.0 Neut # (Auto) 4.59 Lymph # (Auto) 1.68 [place] # (Auto) 0.50 Eos # (Auto) 0.02 Baso # (Auto) 0.00 Abs Immat Gran (auto) 0.09 Imm/Tot Granulo (auto) 1.3 ABG pH 7.44 ABG pCO2 49 H ABG pO2 62.2 L ABG HCO3 33 H ABG Total CO2 29 ABG O2 Saturation 94 ABG Base Excess 7.3 H VBG pH 7.379 VBG pCO2 62 H* VBG pO2 < 30.1 VBG HCO3 36 H Sodium 142 Potassium 4.1 Chloride 100 Carbon Dioxide 37 H Anion Gap 5 L BUN 20 Creatinine 0.8 Estimated Creat Clear 61.51 Estimated GFR 93 Glucose 96 Lactate 1.3 Calcium 8.9 C-Reactive Protein 0.8 Lab Acknowledgement Test Added Preliminary micro results at discharge 11/08/24 Unknown Sputum Culture - Preliminary Sputum - Expectorated Sputum Culture in Progress 11/04/24 19:40 Blood Culture - Preliminary Blood NO GROWTH AFTER 72 HOURS 11/04/24 19:44 Blood Culture - Preliminary Blood NO GROWTH AFTER 72 HOURS Discharge Plan Discharge Disposition: Home, Self-Care Date of Admission: 11/04/24 23:22 Primary Care Provider: Licha Henderson Condition: Improved Anticipated Discharge Date/Time: 11/08/24 13:35 Discharge Medications: New cefpodoxime 200 mg tablet 200 mg PO BID Qty: 10 0RF Rx Instructions: must administer with a meal/food prednisone 20 mg tablet 20 mg PO DAILY Qty: 10 0RF Rx Instructions: take two tabs for three days; one tab for three days, 1/2 tab for 2 days Continued carvedilol 6.25 mg tablet 6.25 mg PO BID atorvastatin 10 mg tablet 10 mg PO QPM sotalol 80 mg tablet 40 mg PO BID aspirin 81 mg tablet,delayed release (DR/EC) 81 mg PO DAILY triamcinolone acetonide 0.1 % cream 1 applic topical BID Rx Instructions: TO BOTH EAR CANALS tamsulosin 0.4 mg capsule 0.4 mg PO DAILY trazodone 100 mg tablet 50 mg PO QPM furosemide 20 mg tablet 20 mg PO BID albuterol sulfate 90 mcg/actuation HFA aerosol inhaler 2 puff inhalation Q4H PRN (Reason: dyspnea) Eliquis 5 mg tablet 5 mg PO BID Trelegy Ellipta 100-62.5-25 mcg blister with device 1 ea INHALATION DAILY losartan 25 mg tablet 25 mg PO DAILY Discharge Orders: Discharge Order (Routine); Ordered 11/08/24 Ordered By: Lisa Gunn Patient Education: Prednisone (By mouth), Cefpodoxime Proxetil (By mouth), Using Oxygen at Home (DC) Additional Instructions: Your lung capacity to exchange oxygen is poor. This is likely why you are so winded and have headaches. You can choose to live this way or you can pursue our recommendations to do the followin. Meet with a new PCM - Dr. Li Pitt is here at the [facility] clinic. She is an excellent internal medicine physician that I recommend to you. 2. Establish care with a printing equipment mechanic apprentice. I have submitted the referral to [facility]. Dr. Pitt will assure this is scheduled. 3. Establish care with a sleep medicine physician. Get the sleep study (you can do this at home or in the clinic) and just stay open to ideas. 4. F/U with your brim pouncing machine operator. 5. Where the oxygen as prescribed but at a minimum wear it at night. More is not better. keep it at 1.5L overnight. 6. Finish the prednisone and antibiotic. Whew! Good [place] to you. Activity Level: Activity as Tolerated Discharge Diet: Heart Healthy (2 gm sodium, low fat) Follow Up Appointments: [facility] [Provider Group] (Pulmonology - as soon as possible Sleep medicine - as soon as possible Referrals were sent, PCP can contact them to schedule if they do not first contact you) Yasmin Simon MD [Staff Physician] - 11/15/24 10:00 am ([facility] for Follow-up appointment) Forms: [facility]KT Info Instructions
[2024-11-08 14:12] LABS: ABG PCO2 51 mmHG (35-45); Base Excess ABG 7.1 mmol/L (-3.0-3.0); HCO3 ABG 33 mmol/L (21-28); Oxygen Saturation ABG 94 % (92-100); PO2 ABG 65.2 mmHG (80-105); TCO2 ABG 29 mmol/l (21-30); pH ABG 7.42 (7.35-7.45)
[2024-11-08 15:00] VITALS: BP 150/90; PULSE 73; PULSE 76; RESP 18; TEMP 36.4; O2SAT 91
--- NOTE | 2024-11-08 17:11 | PC.NURSE ---
Nursing Care Hours: [id number] Pt this shift calm and cooperative, alert and oriented. No c/o pain but shares that he is having epigastric burning-ache especially with deep breathing. Intermittent hypoxia on monitor with SOB with exertion. Attempted to discuss CPAP use but pt states we are not talking about that. Pt states I would rather them let me just sleep and let me go. CT and labs done. Encouraged to use 1.5L NC, DC with O2. IV removed. Pt ambulated off the unit in stable condition.
== END 2024-11-08 16:33 | disposition home or self-care (01) | DRG 189 ==
LOC: ED 22:09 → MEDSURG 11-05 09:43
PROVIDERS: Family Medicine; Admitting Provider Student in an Organized Health Care Education/Training Program; Emergency Provider Emergency Medicine; PCP Internal Medicine; Visit Provider Student in an Organized Health Care Education/Training Program
DX: J96.21 Acute and chronic respiratory failure with hypoxia (principal); J18.1 Lobar pneumonia, unspecified organism; J44.1 Chronic obstructive pulmonary disease with (acute) exacerbation; I48.92 Unspecified atrial flutter; J44.0 Chronic obstructive pulmonary disease with (acute) lower respiratory infection; I48.19 Other persistent atrial fibrillation; J96.22 Acute and chronic respiratory failure with hypercapnia; I25.10 Atherosclerotic heart disease of native coronary artery without angina pectoris; I25.5 Ischemic cardiomyopathy; I48.0 Paroxysmal atrial fibrillation; G47.33 Obstructive sleep apnea (adult) (pediatric); I10 Essential (primary) hypertension; I25.2 Old myocardial infarction; Z79.82 Long term (current) use of aspirin; Z79.01 Long term (current) use of anticoagulants; Z86.74 Personal history of sudden cardiac arrest; Z87.891 Personal history of nicotine dependence; Z92.81 Personal history of extracorporeal membrane oxygenation (ECMO)
CPT/HCPCS: 36415; 36600; 71046; 71260; 71275; 80048; 81001; 82803; 83605; 83735; 83880; 84484; 85025; 85027; 86140; 87040; 87070; 87205; 87449; 87631; 87899; 93005; 94640; 94664; 94761; 99284; 99285; A9270; J0456; J0696; J2919; J7050; J7512; Q9967

== ENCOUNTER 2024-11-25 20:07 | Outpatient (CLI) | payer MEDICARE, BC, SELFPAY | END 2024-11-25 20:08 | disposition home or self-care (01) | LOC: SLEEP 20:09 | PROVIDERS: PCP Internal Medicine; Visit Provider Family Medicine | DX: G47.33 Obstructive sleep apnea (adult) (pediatric) (principal); E66.9 Obesity, unspecified | CPT/HCPCS: 95811 ==